=== PATIENT | female | born 1975 | race Caucasian/White ===

== ENCOUNTER → 2018-02-25 15:40 | Outpatient (CLI) | payer SELFPAY ==
--- NOTE | 2018-02-25 16:20 | MRI_ITS ---
MR Spine Thoracic W/O Contrast INDICATION: MID BACK PAINlifting injury 2 months ago , mid back pain and bilat arm weakness COMPARISON: None TECHNIQUE: Multiplanar multisequence MRI examination of the thoracic spine without contrast FINDINGS: There is normal thoracic kyphosis and no evidence of scoliosis. Height of the vertebral bodies is preserved. Alignment at the facet joints is normal. There is no evidence of significant disc bulging, spinal canal or neuroforaminal stenosis. The thoracic cord is normal in course, caliber, and signal intensity. No abnormal epidural or paraspinal collection is identified. The bone marrow signal is normal. MRI/Spine Thoracic (Routine) IMPRESSION: MRI of the thoracic spine is within normal limits. at 0107 Reported and signed by: Michelle Medel MD Electronically Signed: Michelle Medel MD at 0:06 EDT Tel , Service support ,
== END ==
DX: M54.6 Pain in thoracic spine (principal); M62.830 Muscle spasm of back
CPT/HCPCS: 72146

== ENCOUNTER → 2018-03-21 13:24 | Outpatient (CLI) | payer SELFPAY ==
--- NOTE | 2018-03-21 13:29 | RAD_ITS ---
STUDY: X-RAY CHEST REASON FOR EXAM: Female, 42 years old. Back pain TECHNIQUE: 2 views COMPARISON: None. FINDINGS: The lungs are clear and expanded. There is no demonstrated pleural abnormality. Normal size heart. Normal mediastinum and david. Normal visualized pulmonary arteries. Normal visualized aortic arch and descending thoracic aorta. Normal visualized thoracic spine. Normal visualized ribs, clavicles, and shoulders. There is no demonstrated abnormality of the visualized soft tissue structures of the upper abdomen. RAD/Chest PA and Lateral IMPRESSION: Normal x-ray examination of the chest. Electronically Signed: Lulú Sears MD at 21:57 EDT , Service support ,
--- NOTE | 2018-03-21 13:30 | EKG12_ITS ---
Test Reason : CP Blood Pressure : / mmHG Vent. Rate : 077 BPM Atrial Rate : 077 BPM P-R Int : 130 ms QRS Dur : 082 ms QT Int : 374 ms P-R-T Axes : 020 055 040 degrees QTc Int : 423 ms Normal sinus rhythm Normal ECG Confirmed by CHASITY EDWARDS MD ([id number]), news videotape editor VANESA EVERETT ([id number]) on 03/22/2018 1:14:10 PM Referred By: JENNIFER PINEDA Confirmed By:CHASITY EDWARDS MD
== END ==
PROVIDERS: Visit Provider Nurse Practitioner Family
DX: R07.9 Chest pain, unspecified (principal); M54.9 Dorsalgia, unspecified; R61 Generalized hyperhidrosis
CPT/HCPCS: 71046; 93005

== ENCOUNTER → 2018-04-30 13:20 | Outpatient (CLI) | payer SELFPAY ==
--- NOTE | 2018-04-30 13:20 | DT_ITS ---
This patient was seen during an EMR downtime April 29, 2018 - May 06, 2018. This patient may have a combination of paper and electronic documentation or all paper documentation. All documentation is viewable within the e-chart portion of [employer] for each patient visit.
[2018-05-06 10:54] LABS: CPK Total, Creatine Kinase 38 U/L (26-192); CRP < 2.90 mg/L (0.0-3.0)
== END ==
PROVIDERS: Visit Provider Family Medicine
DX: R53.83 Other fatigue (principal); R53.1 Weakness
CPT/HCPCS: 36415; 82550; 86140; 86617; 86618

== ENCOUNTER → 2018-05-30 13:20 | Outpatient (CLI) | payer SELFPAY ==
--- NOTE | 2018-05-30 13:26 | CT_ITS ---
STUDY: CT ABDOMEN AND PELVIS WITHOUT CONTRAST REASON FOR EXAM: Female, 43 years old. Bilateral lower abdominal cramping, 2 years, worsening over the last month. Frequent yeast infections. RADIATION DOSAGE (If Supplied By Facility): CTDIvol = ( 7.41 ) mGy, DLP = ( 366.77 ) mGycm TECHNIQUE: Transaxial images were obtained from the dome of the diaphragm to the symphysis pubis without oral contrast, and without intravenous contrast. Sagittal and coronal images were reconstructed. Individualized dose optimization techniques were used for this CT. COMPARISON: None. FINDINGS: Body wall soft tissues: No acute process. Osseous structures: Slight scoliosis. Inferior chest: No acute process. Hepatobiliary: Normal. Pancreas: No acute process. Spleen: Normal. Adrenal glands: Normal. Urogenital: Normal kidneys, collecting systems, ureters, urinary bladder. Anteverted uterus tilted toward the right, displaced toward the right due to a large left ovarian cyst. Left ovarian cyst is thin-walled, measures 9.8 cm anterior-posterior, 8.1 cm transverse, and 8.4 cm craniocaudal. Central density averaging 22 Hounsfield units, suspicious for a mucinous neoplasm. There is a right ovarian cyst, central density 7.7 Hounsfield units, measuring 3.1 cm. There is no cul-de-sac free fluid. Pelvic floor and sidewalls and retroperitoneum: No mass or adenopathy. Vasculature: No acute process. Stomach: No acute process. Small bowel and mesentery: No acute process. Large bowel: Normal small appendix or appendiceal stump. Unremarkable large bowel and rectum. Free fluid or free air: None. CT/Abdomen/Pelvis without Cont IMPRESSION: 1. Bilateral ovarian cysts. That on the right is probably a dominant follicle but measures greater than 3 cm and should be further characterized. That on the left is large, greatest dimension approximately 9.8 cm, with more complex internal features, potentially representing a mucinous neoplasm or other complex cyst. Further characterization with ultrasound is required. 2. No other acute intra-abdominal process is evident. Electronically Signed: Al Ghada, at 14:24 EDT Tel , Service support ,
--- NOTE | 2018-05-30 13:41 | US_ITS ---
STUDY: ULTRASOUND OF THE FEMALE PELVIS - COMPLETE REASON FOR EXAM: Female, 43 years old. Bilateral pelvic cramping. LMP: 05/18/2018 TECHNIQUE: Transabdominal real-time exam with a scale image documentation. Patient declined transvaginal imaging. TECHNICAL QUALITY: Adequate. COMPARISON: Abdomen and pelvic CT exam of May 30, 2028 FINDINGS: The uterus is anteverted and is tilted to the right side of the pelvis. The uterus measures 8.8 x 4.7 x 3.6 cm. Normal uterine cervix. The endometrium measures 13 mm in thickness, and is hyperechoic. There is no demonstrated endometrial mass. There is a 5 cm pedunculated fibroid of the uterine fundus. There is also a 1 cm hypoechoic density that is in or near the endometrial space. I.U.D. - The patient does not have an I.U.D. The right ovary is visualized. The right ovary measures 4.4 x 3.7 x 3.0 cm. There is a 3.1 x 2.7 x 2.6 cm simple cyst of the right ovary. There is no visualized right adnexal mass or complex lesion. There is normal arterial and normal venous vascularity. The left ovary is visualized. The left ovary measures 10.2 x 9.1 x 6.5 cm. There is a 9.3 x 6.7 x 5.6 cm complex cyst of the left ovary with homogeneous internal echo. There is no visualized left adnexal mass or complex lesion. There is normal arterial and normal venous vascularity. There is no fluid in the cul-de-sac. The pre void volume of the bladder was 395 ml. Polycystic ovary disease: No. US/Pelvic (Non ) IMPRESSION: 5 cm pedunculated fibroid of the uterine fundus. 1 cm hypoechoic density within or near the endometrium. Endometrial polyp versus submucosal fibroid. The addition of a transvaginal study would aid in evaluation of this finding. The patient declined transvaginal exam. 3.1 x 2.7 x 2.6 cm simple cyst of the right ovary. 9.3 x 6.7 x 5.6 cm complex cyst of the left ovary with homogeneous internal echoes which may be hemorrhagic or other substance such as mucinous. Normal Doppler exam of the ovarian tissue bilaterally. Negative for other adnexal masses or free fluid. Electronically Signed: Lulú Sears MD at 17:54 EDT , Service support ,
== END ==
PROVIDERS: Family Provider Family Medicine; PCP Family Medicine; Visit Provider Nurse Practitioner Family
DX: R10.31 Right lower quadrant pain (principal)
CPT/HCPCS: 74176; 76856

== ENCOUNTER → 2018-06-03 11:49 | Outpatient (CLI) | payer SELFPAY ==
[2018-06-05 10:05] LABS: Cancer Antigen 125 141.9 U/mL (0.0-38.1)
== END ==
PROVIDERS: Family Provider Family Medicine; PCP Family Medicine; Visit Provider Family Medicine
DX: N83.292 Other ovarian cyst, left side (principal)
CPT/HCPCS: 36415; 86304

== ENCOUNTER → 2018-08-12 08:47 | Outpatient (CLI) | payer OTHER, SELFPAY ==
[2018-08-12 12:05] LABS: Absolute Lymphocyte Count 1.63 X10^3/ul (0.83-4.51); Absolute Neutrophil Count 3.9 X10^3/uL (2.0-7.7); Basophil# 0.03 X10^3/uL; Basophil% 0.5 % (0-1); Eosinophil# 0.19 X10^3/uL; Eosinophils% 3.1 % (0-5); Hematocrit 38.8 % (37-47); Hemoglobin 12.8 g/dl (12.0-15.0); Lymphocyte # 1.63 X10^3/ul (4.0); Lymphocyte % 26.6 % (19-41); Mean Corpuscular Hgb 28.6 pg (27.0-32.0); Mean Corpuscular Volume 86.8 fL (81-99); Mean Platelet Vol. 11.2 fl (6.2-12.0); Monocyte# 0.38 X10^3/uL; Monocyte% 6.2 % (0-10); Neutrophil # 3.89 X10^3/uL (2.7-7.7); Neutrophil % 63.4 % (47-70); Platelet Count 123 K/mm3 (150-450); RBC Distribution Width CV 12.8 % (11.6-14.6); RBC Distribution Width SD 41.1 fl (35.1-43.9); Red Blood Count 4.47 M/mm3 (4.2-5.4); White Blood Count 6.1 K/mm3 (4.4-11.0)
[2018-08-12 12:07] LABS: POSITIVE COUNT NO; POSITIVE DIFFERENTIAL NO; POSITIVE MORPHOLOGY NO
[2018-08-12 12:29] LABS: AST(SGOT) 18 U/L (15-37); Alanine Aminotransfer ALT/SGPT 24 U/L (13-56); Albumin, Serum 3.7 g/dL (3.2-5.0); Alkaline Phosphatase 69 U/L (45-117); Anion Gap 11 (5-15); BUN 8 mg/dL (7-18); BUN/Creat Ratio 11.6 RATIO (10-20); Calcium,Total 8.6 mg/dL (8.5-10.1); Chloride 105 mmol/L (98-107); Creatinine, Serum 0.69 mg/dL (0.55-1.02); EST Glomerular Filtration Rate 98 mL/min (>60); Est Glom Filt Rate - Afr Amer 119 mL/min (>60); Globulin 3.8 g/dL (2.2-4.2); Glucose 89 mg/dL (74-106); Potassium 3.9 mmol/L (3.5-5.1); Protein, Total 7.5 g/dL (6.4-8.2); Sodium Level 141 mmol/L (136-145)
[2018-08-13 09:49] LABS: Cancer Antigen 125 58.9 U/mL (0.0-38.1)
== END ==
PROVIDERS: Family Provider Family Medicine; PCP Family Medicine; Visit Provider Family Medicine
DX: R97.0 Elevated carcinoembryonic antigen [CEA] (principal); R10.9 Unspecified abdominal pain
CPT/HCPCS: 36415; 80053; 85025; 86304

== ENCOUNTER → 2018-08-16 11:24 | Outpatient (CLI) | payer OTHER, SELFPAY ==
--- NOTE | 2018-08-16 11:31 | US_ITS ---
STUDY: ULTRASOUND OF THE FEMALE PELVIS - COMPLETE REASON FOR EXAM: Female, 43 years old. Pelvic pain. LMP: May 30, 2018. TECHNIQUE: Transabdominal. Patient was unable to tolerate vaginal probe insertion. TECHNICAL QUALITY: Adequate. COMPARISON: Comparison is made with prior study dated May 30, 2018. FINDINGS: The uterus is anteverted and is in a midline position. The uterus measures 8.7 cm x 6.1 cm x 4.3 cm. Normal uterine cervix. The endometrium measures 10.6 mm in thickness, and is hyperechoic. There is no demonstrated endometrial mass. There is no demonstrated myometrial mass. The previously seen uterine fibroid is not seen at this time most likely secondary to prior resection. I.U.D. - The patient does not have an I.U.D. The right ovary is visualized. The right ovary measures 3.1 cm x 3.1 cm x 2.0 cm. There is no right ovarian cyst or ovarian mass. There is no visualized right adnexal mass or complex lesion. There is normal arterial and normal venous vascularity. The left ovary is visualized. The left ovary measures 5.5 cm x 5.7 cm x 5.0 cm. There is a 5.5 cm x 5.7 cm primarily cystic mass in the ovary with low-level echoes. This may represent a child with cyst if the patient has a history of endometriosis. There is no visualized left adnexal mass or complex lesion. There is normal arterial and normal venous vascularity. There is no fluid in the cul-de-sac. The pre void volume of the bladder was 221 ml. Polycystic ovary disease: No. US/Pelvic (Non ) IMPRESSION: No uterine fibroid is seen at this time most likely secondary to prior surgery. 5.5 cm x 5.7 cm complex cystic mass in the left ovary. Clinical correlation is recommended. Electronically Signed: Ashish He MD at 8:56 EDT Tel [phone], Service support ,
--- NOTE | 2018-08-16 11:33 | BI_ITS ---
MAMMOGRAPHY - BILATERAL DIAGNOSTIC REASON FOR EXAM: Female, 43 years old. Right axillary swelling. PERTINENT HISTORY: Non-contributory. TECHNIQUE: Digital bilateral breast amos (3D mammographic acquisition) in the CC and MLO projections. 2-D mediolateral oblique (MLO) and craniocaudad (CC) views of both breasts were obtained. CAD: Full Field Digital Mammography with Computer Added Detection was performed. COMPARISON: None. Baseline examination. FINDINGS: Breast Composition: The breasts are heterogeneously dense, which may obscure small masses. There are no dominant masses or suspicious calcifications. No other significant abnormalities are identified. BI/DIAG MAMM W/CAD, BILAT IMPRESSION: Negative diagnostic mammogram. With the patient's history of left axillary swelling, correlation with ultrasound is recommended. ASSESSMENT CATEGORY: BIRADS Category 0: Incomplete. Need additional imaging evaluation. A letter regarding these results will be sent to the patient by the facility within 30 days. Approximately 10% of breast cancers are not detected by mammography. A normal mammogram should not delay biopsy of a clinically suspicious abnormality. Electronically Signed: Ashish He MD at 13:17 EDT Tel [phone], Service support ,
--- NOTE | 2018-08-16 11:34 | US_ITS ---
STUDY: ULTRASOUND BREAST - right breast. REASON FOR EXAM: Female, 43 years old. Right axillary fullness. TECHNIQUE: Axial and longitudinal images of the breast were performed with a high resolution ultrasound transducer. COMPARISON: Comparison is made with prior mammogram done earlier today. FINDINGS: Right Breast: No sonographic abnormality is seen. US/Breast Limited Unilateral IMPRESSION: No sonographic abnormality is seen. ASSESSMENT CATEGORY: BIRADS Category 1: Negative. A letter regarding these results will be sent to the patient by the facility within 30 days. Electronically Signed: Ashish He MD at 14:57 EDT Tel [phone], Service support ,
== END ==
PROVIDERS: Family Provider Family Medicine; PCP Family Medicine; Visit Provider Family Medicine
DX: N83.201 Unspecified ovarian cyst, right side (principal); M79.621 Pain in right upper arm; M79.89 Other specified soft tissue disorders; R92.2 Inconclusive mammogram; D25.9 Leiomyoma of uterus, unspecified; R10.9 Unspecified abdominal pain; R97.0 Elevated carcinoembryonic antigen [CEA]
CPT/HCPCS: 76642; 76856; 77062; 77063; 77066; G0279

== ENCOUNTER → 2018-11-04 10:51 | Outpatient (CLI) | payer MEDICAID, SELFPAY ==
[2018-11-04 12:55] LABS: T4 Free Direct 0.97 ng/dL (0.76-1.46); Thyroid Stim Hormone (TSH) 2.87 uIU/mL (0.358-3.74)
[2018-11-05 16:16] LABS: Thyroid Peroxidase AB 402 IU/mL (0-34)
[2018-11-06 09:18] LABS: Carcinoembryonic Antigen 0.6 ng/mL (0.0-4.7); Thyroglobulin Antibody 3.6 IU/mL (0.0-0.9)
== END ==
PROVIDERS: PCP Family Medicine; Visit Provider Family Medicine
DX: N83.9 Noninflammatory disorder of ovary, fallopian tube and broad ligament, unspecified (principal); R97.0 Elevated carcinoembryonic antigen [CEA]; R79.89 Other specified abnormal findings of blood chemistry
CPT/HCPCS: 36415; 82378; 84439; 84443; 86376; 86800

== ENCOUNTER → 2018-12-19 12:34 | Outpatient (CLI) | payer MEDICAID, SELFPAY ==
--- NOTE | 2018-12-19 12:37 | CT_ITS ---
STUDY: CT ABDOMEN AND PELVIS WITH CONTRAST REASON FOR EXAM: Female, 43 years old. Right ovarian mass. Left ovary removed. RADIATION DOSAGE (If Supplied By Facility): CTDIvol = ( 9.78 ) mGy, DLP = ( 419.77 ) mGycm TECHNIQUE: Transaxial images were obtained from the dome of the diaphragm to the symphysis pubis without oral contrast. 100CC ml of Isovue 300 contrast was administered. Sagittal and coronal images were reconstructed. Individualized dose optimization techniques were used for this CT. COMPARISON: None. FINDINGS: The lung bases are clear. A small 4 mm area of low attenuation in the medial segment of the left lobe peripherally. May be a cyst. No dilated intrahepatic biliary radicles. The gallbladder is normal with no calcifications within it. There is no pericholecystic fluid collection or streakiness The spleen is normal. The pancreas is normal. Both adrenals are normal. The kidneys are normal with no masses, calculi or hydronephrosis The stomach is normal. There is no bowel distention, acute appendicitis or diverticulitis. No constricting lesions are seen in large bowel. The abdominal wall is intact with no hernias. There is no ascites or any free intraperitoneal air. No indication of epiploic appendagitis The vascular structures in the retroperitoneum are normal. There is no retrocrural, retroperitoneal or mesenteric adenopathy. The bones and joints are normal. The urinary bladder is normal.--The uterus is normal. There is a 5.8 cm solid left adnexal mass is attached to the uterus. May represent a subserosal fibroid There is no inguinal or pelvic adenopathy. There is no inguinal hernia. CT/Abdomen/Pelvis W IV Cont ONLY IMPRESSION: A solid 5.8 cm left adnexal mass. A subserosal fibroid is suspected. No acute appendicitis or diverticulitis. Electronically Signed: Devon Lewis MD at 7:35 EST Tel , Service support ,
== END ==
PROVIDERS: Family Provider Family Medicine; PCP Family Medicine; Referring Provider Family Medicine; Visit Provider Family Medicine
DX: N83.9 Noninflammatory disorder of ovary, fallopian tube and broad ligament, unspecified (principal); R10.2 Pelvic and perineal pain
CPT/HCPCS: 74177; Q9967

== ENCOUNTER → 2019-10-14 13:26 | Outpatient (CLI) | payer MEDICAID, SELFPAY ==
[2019-10-14 15:14] LABS: Absolute Neutrophil Count 3.5 X10^3/uL (2.0-7.7); Basophil# 0.02 X10^3/uL; Basophil% 0.3 % (0-1); Eosinophil# 0.12 X10^3/uL; Eosinophils% 2.1 % (0-5); Hematocrit 41.2 % (37-47); Hemoglobin 13.7 g/dL (12.0-15.0); Lymphocyte % 27.9 % (19-41); Mean Corp Hgb Conc 33.3 g/dL (32-36); Mean Corpuscular Hgb 29.3 pg (27.0-32.0); Mean Corpuscular Volume 88.2 fL (81-99); Mean Platelet Vol. 12.9 fl (6.2-12.0); Monocyte# 0.45 X10^3/uL; Monocyte% 7.8 % (0-10); NRBC Flagged by Analyzer 0 % (0-5); Neutrophil # 3.54 X10^3/uL (2.7-7.7); Neutrophil % 61.7 % (47-70); Platelet Count 120 K/mm3 (150-450); RBC Distribution Width CV 12.7 % (11.6-14.6); RBC Distribution Width SD 40.9 fl (35.1-43.9); Red Blood Count 4.67 M/mm3 (4.2-5.4); White Blood Count 5.7 K/mm3 (4.4-11.0)
[2019-10-14 15:26] LABS: ALB/GLOB Ratio 1.2 RATIO (0.9-2.4); AST(SGOT) 13 U/L (15-37); Alanine Aminotransfer ALT/SGPT 20 U/L (13-56); Albumin, Serum 4.2 g/dL (3.2-5.0); Alkaline Phosphatase 51 U/L (45-117); Anion Gap 10 (5-15); BUN 8 mg/dL (7-18); CRP < 2.90 mg/L (0.0-3.0); Calcium,Total 8.8 mg/dL (8.5-10.1); Chloride 106 mmol/L (98-107); Creatinine, Serum 0.66 mg/dL (0.55-1.02); EST Glomerular Filtration Rate 102 mL/min (>60); Est Glom Filt Rate - Afr Amer 123 mL/min (>60); Globulin 3.5 g/dL (2.2-4.2); Glucose 78 mg/dL (74-106); Lipase 109 U/L (73-393); Potassium 3.6 mmol/L (3.5-5.1); Protein, Total 7.7 g/dL (6.4-8.2); Sodium Level 139 mmol/L (136-145)
[2019-10-14 15:42] LABS: Erythrocyte Sedimentation Rate 5 mm/hr (0-20)
[2019-10-16 13:38] LABS: Carbohydrate Ag 19-9 2261 9 U/mL (0-35); Carcinoembryonic Antigen 0.6 ng/mL (0.0-4.7)
== END ==
PROVIDERS: Family Provider Family Medicine; PCP Family Medicine; Visit Provider Family Medicine
DX: R10.9 Unspecified abdominal pain (principal); N83.9 Noninflammatory disorder of ovary, fallopian tube and broad ligament, unspecified; R97.0 Elevated carcinoembryonic antigen [CEA]
CPT/HCPCS: 36415; 80053; 82378; 83690; 85025; 85652; 86140; 86301

== ENCOUNTER 2019-10-24 11:13 | Emergency (ER) | payer MEDICAID, SELFPAY ==
[2019-10-24 11:14] VITALS: BP 124/68; PULSE 89; RESP 16; TEMP 36.9; O2SAT 97; BMI 21.6
--- NOTE | 2019-10-24 11:50 | ED.DCSUM_ITS ---
- ER Visit Summary Date of Service: 10/24/19 Chief Complaint: Left lower quadrant flank and abdominal pain. History of Present Illness: The patient is a 44 F no significant past medical history. She did have surgery in her left ovary removed secondary to ovarian cyst. That was done at [facility]. She states she had a Pelvic MRI several weeks ago at the [facility] and they saw endometriosis. Patient states the last month or so she has been having intermittent left lower quadrant and left flank and back abdominal pain. No nausea or vomiting but says the pain is worse with eating so she has not been eating as much and has lost as much as 20 pounds. She denies any hematuria. Currently no dysuria. Normal bowel movements. Physical Examination: Well-appearing middle-aged female. No acute distress. Vital signs are stable and afebrile. H EENT exam unremarkable. Moist with membranes. Neck nontender. No lymphadenopathy. Lungs clear to auscultation bilaterally. Heart regular rhythm no murmur. Abdomen is soft. Mild left lower quadrant tenderness. No rebound guarding rigidity. Normal bowel sounds. Nondistended. No signs of obstruction. Patient moving all 4 extremities. Back is nontender. Neurologically she is awake and alert with no focal motor deficits. Test Results: BC shows a white count 6. Hemoglobin 13. Chemistries unremarkable normal creatinine gap. Liver enzymes normal. Lipase normal. UA normal. Serum test negative. CT abdomen pelvis shows a large left adnexal mass which is suspected to be a pedunculated fibroid. This was also previously seen on an MRI from another facility. Emergency Department Course and Treatment: Left lower quadrant and flank abdominal pain. Has been a benign appearing exam. Had a recent MRI at the [facility]. Repeat exam at 1450 lipase of abdomen is benign. She and her brother are concerned or something else going on. They requested imaging to be done. I did go over there MRI of her pelvis from the [facility] which we were sent to results which showed a uterine fibroid but otherwise is unremarkable. C. Treatment Plan: Discharged home. Follow-up with her outpatient evaluation at the [facility]. Disposition: Discharge Impression: Left lower quadrant abdominal and flank pain Canary to a left lower quadrant mass thought to be a pedunculated fibroid This note was generated with Specpageation software. It may contain incorrect words, spelling, and punctuation that were not noted in review of the chart prior to signing ED Disposition - Plan for ED Patient: Referrals: Chris Aponte DO [Primary Care Provider] -
[2019-10-24] MEDS: 0.9% Normal Saline 1,000 ML 1000 ML IV (12:21)
[2019-10-24 12:30] LABS: Red Blood Cells-Urine 0 SEEN /hpf (0-5); Squamous Epithelial Cells - UA 0 SEEN /hpf (5-10); White Blood Cells 0 SEEN /hpf (0-5)
[2019-10-24 12:33] LABS: Bacteria 0 SEEN /hpf (None Seen); Mucous, Urine 0 SEEN /hpf (<or=2+)
[2019-10-24 12:40] LABS: Absolute Lymphocyte Count 1.76 X10^3/uL (0.83-4.51); Absolute Neutrophil Count 4.2 X10^3/uL (2.0-7.7); Basophil# 0.02 X10^3/uL; Basophil% 0.3 % (0-1); Eosinophil# 0.18 X10^3/uL; Eosinophils% 2.7 % (0-5); Hematocrit 40.6 % (37-47); Hemoglobin 13.9 g/dL (12.0-15.0); Lymphocyte # 1.76 X10^3/ul (4.0); Lymphocyte % 26.5 % (19-41); Mean Corp Hgb Conc 34.2 g/dL (32-36); Mean Corpuscular Hgb 30.4 pg (27.0-32.0); Mean Corpuscular Volume 88.8 fL (81-99); Mean Platelet Vol. 12.2 fl (6.2-12.0); Monocyte# 0.48 X10^3/uL; Monocyte% 7.2 % (0-10); NRBC Flagged by Analyzer 0 % (0-5); Neutrophil # 4.18 X10^3/uL (2.7-7.7); Neutrophil % 62.8 % (47-70); Platelet Count 156 K/mm3 (150-450); RBC Distribution Width CV 12.4 % (11.6-14.6); RBC Distribution Width SD 39.8 fl (35.1-43.9); Red Blood Count 4.57 M/mm3 (4.2-5.4); White Blood Count 6.7 K/mm3 (4.4-11.0)
[2019-10-24 12:46] LABS: Internal QC Validated? YES +Cl - CLEAR BKGD; Pregnancy, Serum, hCG Quali. NEGATIVE Negative
[2019-10-24 12:50] LABS: AST(SGOT) 15 U/L (15-37); Alanine Aminotransfer ALT/SGPT 19 U/L (13-56); Alkaline Phosphatase 53 U/L (45-117); Anion Gap 9 (5-15); BUN 6 mg/dL (7-18); BUN/Creat Ratio 8.4 RATIO (10-20); Bilirubin, Direct 0.18 mg/dL (0.00-0.30); Calcium,Total 8.7 mg/dL (8.5-10.1); Chloride 107 mmol/L (98-107); Creatinine, Serum 0.71 mg/dL (0.55-1.02); EST Glomerular Filtration Rate 94 mL/min (>60); Est Glom Filt Rate - Afr Amer 114 mL/min (>60); Estimated Creatinine Clearance 90.04 ml/min; Globulin 3.3 g/dL (2.2-4.2); Glucose 91 mg/dL (74-106); Lipase 117 U/L (73-393); Potassium 3.4 mmol/L (3.5-5.1); Protein, Total 7.3 g/dL (6.4-8.2); Sodium Level 142 mmol/L (136-145)
[2019-10-24 12:57] LABS: Color, Urine Yellow (Yellow); Glucose, Dipstick Normal (Normal); Ketone-Dipstick Negative (Negative); Leukocyte Esterase-Dipstick Negative /ul (Negative); Nitrite-Dipstick Negative (Negative); Occult Blood-Urine Negative /ul (Negative); Protein-Dipstick Negative (Negative); Urine Bilirubin Dipstick Negative (Negative); Urine Clarity Clear (Clear); Urine Urobilinogen Normal (Normal); Urine pH 6.5 (5.0 - 8.0)
--- NOTE | 2019-10-24 14:57 | CT_ITS ---
STUDY: CT ABDOMEN AND PELVIS WITHOUT CONTRAST REASON FOR EXAM: Female, 44 years old. Left-sided abdominal pain for 2 weeks, history of uterine mass RADIATION DOSAGE (If Supplied By Facility): CTDIvol = ( 10.82 ) mGy, DLP = ( 436.78 ) mGycm TECHNIQUE: Transaxial images were obtained from the dome of the diaphragm to the symphysis pubis without oral contrast, and without intravenous contrast. Sagittal and coronal images were reconstructed. Individualized dose optimization techniques were used for this CT. COMPARISON: December 19, 2018 FINDINGS: There is minor atelectasis within the dependent portion of the lungs.. The visualized portions of the heart are within normal limits. Mild nonspecific fatty infiltration of the liver without mass or bile duct dilatation. Contracted thick-walled gallbladder without calcified stones likely physiologic.. Normal spleen. Pancreas is normal size and homogeneous attenuation however there is effacement of the gastric pancreatic fat plane and possibility of mild pancreatitis not entirely excluded. Normal bilateral adrenal glands. Normal right kidney. Normal left kidney. Normal visualized stomach. Normal small intestine. There is an a haustral appearance to a segment of the descending colon with mild thickening of the guillory possibly representing inflammatory bowel disease although there is no appreciable stranding in the fat at this time. No evidence for acute appendicitis Normal abdominal aorta. Normal inferior vena cava. Normal retroperitoneum. There is mild prominence of the uterus which is deviated towards the right impinging upon the dome of the bladder. There is a large left adnexal mass demonstrating heterogeneous attenuation and multiple foci of calcification measuring approximately 5.5 x 4.8 x 5.7 cm likely representing a pedunculated fibroid. There is a cystic adnexal lesion on the right most likely ovarian. This may be further evaluated with pelvic sonogram if indicated Normal abdominal wall. Normal osseous structures. CT/Abdomen/Pelvis W IV Cont ONLY IMPRESSION: Effacement of the gastric pancreatic fat plane of uncertain significance although could be due to early changes of acute pancreatitis and clinical correlation recommended Large left adnexal mass possibly representing pedunculated fibroid although solid ovarian mass not entirely excluded. Mild cystic changes within the right adnexa. Pelvic ultrasound would be helpful for further evaluation Findings which may be consistent with nonspecific inflammatory bowel disease of the descending colon without evidence for inflammatory stranding at this time. Other findings as above Electronically Signed: Ambrocio Lebron MD at 16:23 EST , Service support ,
[2019-10-24 15:18] VITALS: BP 119/80; PULSE 65; RESP 15
--- NOTE | 2019-10-24 16:53 | ED.DEP ---
ED Disposition - Plan for ED Patient: Disposition: Home or Assisted Living Instructions: ABDOMINAL PAIN, Unknown Cause, (Female) Prescriptions: Ondansetron [Zofran Odt] 4 mg PO Q8H PRN PRN #20 tab PRN Reason: Nausea Prescription Printed Additional Instructions: Tylenol and/or Motrin for pain. Follow-up with your evaluation at the [facility] that you already have scheduled for the evaluation of the mass in your left lower quadrant that the prior MRI and today's CAT scan thinks is a fibroid.
[2019-10-24 17:01] VITALS: PULSE 66; RESP 16
== END 2019-10-24 17:03 | disposition home or self-care (01) ==
PROVIDERS: Emergency Provider Emergency Medicine; Family Provider Family Medicine; PCP Family Medicine
DX: R19.04 Left lower quadrant abdominal swelling, mass and lump (principal); R10.32 Left lower quadrant pain
CPT/HCPCS: 74177; 80048; 80076; 81001; 83690; 84703; 85025; 96360; 96361; 99283; J7030; Q9967; A4216

== ENCOUNTER 2019-11-27 10:29 | Day surgery (SDC) | payer MEDICAID, SELFPAY ==
[2019-11-21 14:47] VITALS: BMI 24.0
--- NOTE | 2019-11-27 | GASB_PTH ---
PATIENT: JORGE GUADARRAMA LOC: EN U#:[id number] AGE/SX: 44/F ROOM: RE11/27/[address]: Dr. Mirtha Wilks MD : [id number] BED: DIS: 11/27/2019 SPEC #: [id number] RECD: 11/27/19 13:57 STATUS: ALLAN HAYLEY #: [id number] HEIDI: 11/27/19 00:[address]: Mirtha Wilks DEPT: SURGICAL PATHOLOGY RECD BY: Chico Lofton ENTERED: 11/27/19 13:58 SP TYPE: Gastric Bx OTHR DR: Dr. Chris Aponte DO Tissues: A - Gastric mucous membrane B - Gastric mucous membrane C - Gastric mucous membrane D - Rectum, NOS Procedures: Special Stain Group II Surgery Specimen Level IV Alcian Blue/PAS (control) HEADER OPERATION: Colonoscopy, EGD ([facility]) PRE-OP DIAGNOSIS: Bilateral lower abdomen pain, LUQ abdomen pain, endometriosis, elevated CEA level TISSUE SUBMITTED: A - Antrum biopsy for H. pylori and path, B - Biopsy of gastric polyp, C - Biopsy of GE junction, D - Biopsy of rectal polyps MICROSCOPIC DIAGNOSIS A. Antrum, biopsy: Mild gastritis. See microscopic description and comment. B. Gastric polyp, biopsy: Consistent with fundic gland polyp. C. GE junction, biopsy: Fragments of gastroesophageal mucosa with minimal chronic inflammation. Intestinal metaplasia (goblet cell metaplasia) is not identified. See comment. D. Rectal polyp, biopsy: Fragments of hyperplastic polyp. SJ:arabella 11/28/19 COMMENT A. The results of immunohistochemistry for Helicobacter pylori will be reported separately ([id number]). C. The specimen consists of a scant fragment of gastric epithelium. Alcian blue/PAS stain with matched control is used in the evaluation of the specimen. MICROSCOPIC DESCRIPTION Slides are reviewed. A. The specimen shows fragments of gastric mucosa with chronic inflammatory cell infiltrates in the lamina propria consisting of lymphocytes and plasma cells, consistent with mild chronic gastritis. GROSS DESCRIPTION A - Received in fixative is one container labeled with the patient's name and designated antrum biopsy. The specimen consists of one irregular fragment of light anthony soft tissue that measures 0.3 x 0.3 x 0.2 cm. The specimen is totally submitted in one cassette. B - Received in fixative is one container labeled with the patient's name and designated biopsy gastric polyp. The specimen consists of one irregular fragment of light anthony soft tissue that measures 0.3 x 0.2 x 0.1 cm. The specimen is totally submitted in one cassette. C - Received in fixative is one container labeled with the patient's name and designated biopsy of GE junction. The specimen consists of two irregular fragments of light anthony soft tissue that in aggregate measure 0.6 x 0.3 x 0.1 cm. The specimen is totally submitted in one cassette. D - Received in fixative is one container labeled with the patient's name and designated biopsy of rectal polyps. The specimen consists of multiple irregular fragments of light anthony soft tissue that in aggregate measure 1 x 0.3 x 0.1 cm. The specimen is totally submitted in one cassette. / SJ:rg 11/27/19 TC:3 CPT: 45795 x4, [id number]
--- NOTE | 2019-11-27 08:29 | PCM.HP.BLA ---
History and Physical Date of Admission: 11/27/19 Date of Service: 11/21/19 MR#: [id number] Acct: [id number] Name: JORGE GUADARRAMA Rep #: [id number] : 1975 Provider: Mirtha Wilks MD Age/Sex: 44/F Location: [facility] Status: Signed Intake Vital Signs 11/21/19 Height 5 ft 4 in 11/21/19 Weight: 140 lb 11/21/19 BMI 24.0 11/21/19 BP 137/83 H 11/21/19 Blood Pressure Location Rt brachial 11/21/19 Position Sitting 11/21/19 Respiration 18 11/21/19 Pulse 78 11/21/19 Pulse Source Monitor 11/21/19 Temp 98.5 F 11/21/19 Temp Source Oral 11/21/19 Pulse Oximetry (%) 97 11/21/19 Oxygen Delivery Method room air 11/21/19 BMI 21.6 Intake Visit Reasons: C-Scope Compliance Quality Performance Analyst Required: No Is patient in pain?: No Allergies bee sting Allergy (Uncoded 11/24/19 12:04) Itching Medications ibuprofen 200 mg tablet 200 mg PO Q6H PRN 11/21/19 [History Confirmed 11/24/19] omega-3 fatty acids 1,000 mg capsule 1,000 mg PO DAILY 11/21/19 [History Confirmed 11/24/19] PFSH Medical History (Updated 11/21/19 @ 14:44 by Zora Glass) Acid reflux (Acute) Constipation (Acute) Abdominal pain, lower (Acute) Fatigue (Acute) Back problem (Acute) Felix's disease (Acute) Uterine fibroid (Acute) Adenomyosis (Acute) Endometriosis (Acute) Surgical History (Updated 11/21/19 @ 14:44 by Zora Glass) History of left oophorectomy (Acute) Family History (Updated 11/21/19 @ 14:47 by Zora Glass) Brother Diabetes Father Hypertension Sister Lupus Thyroid disorder Social History (Updated 11/27/19 @ 08:26 by Mirtha Wilks MD) Smoking Status: Never smoker second hand exposure: No alcohol intake: never substance use type: does not use caffeine: Yes what type of physical activity do you participate in: none frequency: does not exercise HPI HPI HPI: JORGE MANZANO, is a 44 F who presents to the office today for HPI HPI HPI: JORGE MANZANO, is a 44 F who presents to the office today for colonoscopy due to abdominal pain and elevated CEA 17.53 (from lab in [place] when she was visiting her sister). Patient states that she has had an EGD in [place] when she was 17 otherwise never had a colonoscopy. Patient states that lifting can make her abdominal pain worse and also typically worse after her menses. Usually occurs in the right lower quadrant goes the left lower quadrant and then to the left upper quadrant. Patient states that typically it last about 5 days after her. She is being worked up for endometriosis. However last month they lasted about 2 weeks. Patient states that certain foods can have a sharp pain associated with them fruit, sweet, meat. Patient denies any reflux symptoms but does have the left upper quadrant pain. Patient has bowel movements daily and does take a laxative daily for this. Patient denies any blood. Patient's maternal grandfather had colon cancer diagnosed at age 73. Patient's last menses was 11/10/2019. Patient also had MRI of the pelvis which showed some endometriosis abutting the sigmoid colon, also other areas of endometriosis, a large exophytic pedunculated uterine leiomyoma, suspected focal adenomyoma. Exam Const General: cooperative, healthy appearing, comfortable, no acute distress Resp Effort & Inspection: normal respiratory effort Cardio Rate: regular rate GI Inspection: non-distended Palpation: soft, no guarding, no hernias, tender (Bilateral lower quadrants, left upper quadrant, no peritoneal signs) Assessment & Plan Problems 1. Bilateral lower abdominal pain R10.31; R10.32 2. LUQ abdominal pain R10.12 3. Elevated CEA R97.0 4. Endometriosis N80.9 Plan Discussed with patient due to the left upper quadrant pain would also suggest taking a look with an EGD. Patient was agreeable with plan. I have discussed the above with the patient. I have offered the patient EGD and colonoscopy for evaluation. I have explained the risks/benefits of the procedure and described the procedure. I have discussed the risks with the patient, including but not limited to: infection, bleeding, perforation of the GI tract requiring emergency surgery, inability to complete the procedure, injury to any internal organs, complications of anesthesia, etc. - the patient understands and agrees to proceed. I have answered all the patient's questions to the patient's satisfaction and the patient has no further questions. The patient has been given instructions for the colon cleansing preparation. One day of clears MiraLAX Dulcolax split prep. Mirtha Wilks M.D. Pager: [phone] [facility] [address] [place] [address], [facility], [address] [place] [address] Office: [phone] Plan Detail Follow Up will schedule colonoscopy Coding Level of Care Code Off vis,new,level 3 Diagnoses Bilateral lower abdominal pain R10.31; R10.32 LUQ abdominal pain R10.12 Elevated CEA R97.0 Endometriosis N80.9 11/27/19 0826 <Electronically signed by Mirtha Wilks MD> Date Mirtha Wilks MD
[2019-11-27 10:45] VITALS: BP 117/60; PULSE 78; RESP 15; TEMP 36.6; O2SAT 100; BMI 23.1
[2019-11-27 10:57] LABS: Internal QC Validated? YES +Cl - CLEAR BKGD; Pregnancy, Urine Negative Negative
[2019-11-27] MEDS: Lactated Ringers 1,000 ML 100 ML IV (11:05)
--- NOTE | 2019-11-27 11:45 | IMM_PTH ---
PATIENT: JORGE GUADARRAMA LOC: EN U#:[id number] AGE/SX: 44/F ROOM: RE11/27/[address]: Dr. Mirtha Wilks MD : 1975 BED: DIS: 11/27/2019 SPEC #: [id number] RECD: 11/27/19 14:44 STATUS: SOUJuanjose REQ #: [id number] HEIDI: 11/27/19 11:[address]: Mirtha Wilks DEPT: IMMUNOHISTOCHEMISTRY RECD BY: Jing Saenz ENTERED: 11/27/19 14:44 SP TYPE: IMMUNO OTHR DR: Dr. Chris Aponte, DO Tissues: A - Abdomen, NOS Procedures: H Pylori (initial) PHYSICIAN & INSTITUTION [place] [address] SPECIMEN INFORMATION: Tissue Source: A - Antrum biopsy Clinical Info: Bilateral lower abdomen pain, LUQ abdomen pain Specimen Number: [id number] CPT code: 74348 METHODOLOGY: Deparaffinized sections of prefer/formalin-fixed tissue or PAP/DQ stained slides are incubated with monoclonal/polyclonal antibodies/oligonucleotide probes. Localization is made via biotin free immunoperoxidase method. Appropriate controls are performed and reacted as expected. Results on target cell population are indicated in the following table: RESULTS: ANTIBODY / CLONE RESULT Block A H Pylori (polyclonal) negative These tests were developed and their performance characteristics determined by [facility]. They may not have been cleared or approved by the U.S. Food and Drug Administration. The FDA has determined that such clearance or approval is not necessary. INTERPRETATION: A. Antrum biopsy: Negative for Helicobacter pylori organisms. AM:arabella 12/01/19
[2019-11-27 12:15] VITALS: BP 117/60; BP 122/75; PULSE 64; RESP 16; TEMP 37.1; O2SAT 100
--- NOTE | 2019-11-27 12:16 | OP.EGD_ITS ---
Patient Name: Tequila Vinson Procedure Date: 11/27/2019 11:26 AM Date of : 1975 Age: 44 Procedure: Upper GI endoscopy Indications: Abdominal pain in the left upper quadrant Providers: Mirtha Wilks MD Referring MD: Chris Aponte Medicines: Monitored Anesthesia Care Patient Profile: This is a 44 year old female. Complications: No immediate complications. Procedure: Pre-Anesthesia Assessment: - Prior to the procedure, a History and Physical was performed, and patient medications and allergies were reviewed. The patient's tolerance of previous anesthesia was also reviewed. The risks and benefits of the procedure and the sedation options and risks were discussed with the patient. All questions were answered, and informed consent was obtained. Prior Anticoagulants: The patient has taken no previous anticoagulant or antiplatelet agents. ASA Grade Assessment: II - A patient with mild systemic disease. After reviewing the risks and benefits, the patient was deemed in satisfactory condition to undergo the procedure. After obtaining informed consent, the endoscope was passed under direct vision. Throughout the procedure, the patient's blood pressure, pulse, and oxygen saturations were monitored continuously. The gastroscope was introduced through the mouth, and advanced to the second part of duodenum. The upper GI endoscopy was accomplished without difficulty. The patient tolerated the procedure well. Scope In: 11:35:20 AM Scope Out: 11:41:06 AM Total Procedure Duration Time 0 hours 5 minutes 46 seconds Findings: The Z-line was variable and was found 40 cm from the incisors. Biopsies were taken with a cold forceps for histology. The examined duodenum was normal. Mildly erythematous mucosa without bleeding was found in the gastric antrum. Biopsies were taken with a cold forceps for histology. Biopsies were taken with a cold forceps for Helicobacter pylori cultures. A few less than 5 mm semi-sessile polyps with no bleeding and no stigmata of recent bleeding were found in the gastric fundus and in the gastric body. The polyp was removed with a cold biopsy forceps. Resection and retrieval were complete. Impression: - Z-line variable, 40 cm from the incisors. Biopsied. - Normal examined duodenum. - Erythematous mucosa in the antrum. Biopsied. - A few gastric polyps. Resected and retrieved. Recommendation: - Await pathology results. - Discharge patient to home. - Resume previous diet. - Continue present medications. - Recommend acid suppression medication. Procedure Code(s): --- Professional --- 59724, Esophagogastroduodenoscopy, flexible, transoral; with biopsy, single or multiple Diagnosis Code(s): --- Professional --- K22.8, Other specified diseases of esophagus K31.89, Other diseases of stomach and duodenum K31.7, Polyp of stomach and duodenum R10.12, Left upper quadrant pain CPT copyright 2017 [employer]. All rights reserved. The codes documented in this report are preliminary and upon membership solicitor review may be revised to meet current compliance requirements. MD Mirtha Mckenzie MD 11/27/2019 12:15:22 PM This report has been signed electronically. Number of Addenda: 0 Note Initiated On: 11/27/2019 11:26 AM
[2019-11-27 12:20] VITALS: BP 116/75; BP 117/60; PULSE 61; RESP 16; O2SAT 100
--- NOTE | 2019-11-27 12:20 | OP.COLON_ITS ---
Patient Name: Tequila Vinson Procedure Date: 11/27/2019 11:42 AM Date of : 1975 Age: 44 Procedure: Colonoscopy Indications: Abdominal pain in the left lower quadrant, Abdominal pain in the left upper quadrant, Abdominal pain in the right lower quadrant Providers: Mirtha Wilks MD Referring MD: Chris Aponte Medicines: Monitored Anesthesia Care Patient Profile: This is a 44 year old female. Last Colonoscopy: none. The patient's first colonoscopy is today. Complications: No immediate complications. Procedure: Pre-Anesthesia Assessment: - Prior to the procedure, a History and Physical was performed, and patient medications and allergies were reviewed. The patient's tolerance of previous anesthesia was also reviewed. The risks and benefits of the procedure and the sedation options and risks were discussed with the patient. All questions were answered, and informed consent was obtained. Prior Anticoagulants: The patient has taken no previous anticoagulant or antiplatelet agents. ASA Grade Assessment: II - A patient with mild systemic disease. After reviewing the risks and benefits, the patient was deemed in satisfactory condition to undergo the procedure. After I obtained informed consent, the scope was passed under direct vision. Throughout the procedure, the patient's blood pressure, pulse, and oxygen saturations were monitored continuously. The Colonoscope was introduced through the anus and advanced to the cecum, identified by the appendiceal orifice, ileocecal valve and palpation. The colonoscopy was performed without difficulty. The patient tolerated the procedure well. The quality of the bowel preparation was good. Scope In: 11:44:32 AM Scope Withdrawal Time 0 hours 10 minutes 53 seconds Scope Out: 12:07:47 PM Total Procedure Duration Time 0 hours 23 minutes 15 seconds Findings: The perianal and digital rectal examinations were normal. Two sessile polyps were found in the rectum. The polyps were less than 5 mm in size. These polyps were removed with a cold biopsy forceps. Resection and retrieval were complete. The exam was otherwise without abnormality on direct and retroflexion views. A diffuse area of melanosis was found in the transverse colon, in the ascending colon and in the cecum. Impression: - Two less than 5 mm polyps in the rectum, removed with a cold biopsy forceps. Resected and retrieved. - The examination was otherwise normal on direct and retroflexion views. - Melanosis in the colon. Recommendation: - Discharge patient to home. - Resume previous diet. - Continue present medications. - Await pathology results. - Repeat colonoscopy in 5-10 years for surveillance based on pathology results. Procedure Code(s): --- Professional --- 97413, Colonoscopy, flexible; with biopsy, single or multiple Diagnosis Code(s): --- Professional --- K62.1, Rectal polyp K63.89, Other specified diseases of intestine R10.32, Left lower quadrant pain R10.12, Left upper quadrant pain R10.31, Right lower quadrant pain CPT copyright 2017 [employer]. All rights reserved. The codes documented in this report are preliminary and upon clinical coder review may be revised to meet current compliance requirements. MD Mirtha Mckenzie MD 11/27/2019 12:20:07 PM This report has been signed electronically. Number of Addenda: 0 Note Initiated On: 11/27/2019 11:42 AM
[2019-11-27 12:25] VITALS: BP 116/80; BP 117/60; PULSE 62; RESP 16; O2SAT 100
[2019-11-27 12:30] VITALS: BP 111/72; BP 117/60; PULSE 65; RESP 16; TEMP 36.2; O2SAT 100
== END 2019-11-27 13:07 | disposition home or self-care (01) ==
LOC: EN 10:30 → AC 10:32
PROVIDERS: Anesthesiology; Family Provider Family Medicine; PCP Family Medicine; Referring Provider Surgery; Visit Provider Surgery
PROC: 0DJD8ZZ Inspection of Lower Intestinal Tract, Via Natural or Artificial Opening Endoscopic (ICD-10-PCS; CPT 45378; principal; 2019-11-27 11:40)
DX: K31.7 Polyp of stomach and duodenum (principal); K22.8 Other specified diseases of esophagus; K31.89 Other diseases of stomach and duodenum; R97.0 Elevated carcinoembryonic antigen [CEA]; K21.9 Gastro-esophageal reflux disease without esophagitis; R10.12 Left upper quadrant pain; R10.31 Right lower quadrant pain; R10.32 Left lower quadrant pain; E06.3 Autoimmune thyroiditis; Z80.0 Family history of malignant neoplasm of digestive organs
CPT/HCPCS: 43239; 45380; 81025; 88305; 88313; 88342; J7120; J2405

== ENCOUNTER → 2020-07-15 12:25 | Outpatient (CLI) | payer MEDICAID, SELFPAY ==
[2020-07-15 15:38] LABS: Absolute Lymphocyte Count 1.39 X10^3/uL (0.83-4.51); Absolute Neutrophil Count 2.5 X10^3/uL (2.0-7.7); Basophil# 0.02 X10^3/uL; Basophil% 0.5 % (0-1); Eosinophil# 0.16 X10^3/uL; Eosinophils% 3.6 % (0-5); Hematocrit 41.2 % (37-47); Lymphocyte # 1.39 X10^3/ul (4.0); Lymphocyte % 31.3 % (19-41); Mean Corpuscular Hgb 30.6 pg (27.0-32.0); Mean Corpuscular Volume 90.2 fL (81-99); Mean Platelet Vol. 13.4 fl (6.2-12.0); Monocyte# 0.32 X10^3/uL; Monocyte% 7.2 % (0-10); NRBC Flagged by Analyzer 0 % (0-5); Neutrophil # 2.54 X10^3/uL (2.7-7.7); Neutrophil % 57.2 % (47-70); POSITIVE COUNT YES; Platelet Count 90 K/mm3 (150-450); RBC Distribution Width CV 12.2 % (11.6-14.6); RBC Distribution Width SD 40.2 fl (35.1-43.9); Red Blood Count 4.57 M/mm3 (4.2-5.4); White Blood Count 4.4 K/mm3 (4.4-11.0)
[2020-07-15 15:45] LABS: ALB/GLOB Ratio 1.2 RATIO (0.9-2.4); AST(SGOT) 9 U/L (15-37); Alanine Aminotransfer ALT/SGPT 16 U/L (13-56); Albumin, Serum 4.2 g/dL (3.2-5.0); Alkaline Phosphatase 47 U/L (45-117); Anion Gap 6 (5-15); BUN 10 mg/dL (7-18); BUN/Creat Ratio 14.6 RATIO (10-20); CRP < 2.90 mg/L (0.0-3.0); Calcium,Total 8.6 mg/dL (8.5-10.1); Chloride 107 mmol/L (98-107); Creatinine, Serum 0.69 mg/dL (0.55-1.02); EST Glomerular Filtration Rate 98 mL/min (>60); Est Glom Filt Rate - Afr Amer 118 mL/min (>60); Globulin 3.6 g/dL (2.2-4.2); Glucose 78 mg/dL (74-106); Lipase 115 U/L (73-393); Potassium 3.4 mmol/L (3.5-5.1); Protein, Total 7.8 g/dL (6.4-8.2); Sodium Level 140 mmol/L (136-145)
[2020-07-15 16:30] LABS: Differential Comment SCANNED; Differential Indicated SCAN CRITERIA MET; Platelet Estimate MOD DEC (ADEQ)
[2020-07-17 07:34] LABS: Carcinoembryonic Antigen 0.6 ng/mL (0.0-4.7)
== END ==
PROVIDERS: PCP Family Medicine; Referring Provider Family Medicine; Visit Provider Family Medicine
DX: R10.12 Left upper quadrant pain (principal); N85.8 Other specified noninflammatory disorders of uterus
CPT/HCPCS: 36415; 80053; 82378; 83690; 85025; 86140

== ENCOUNTER → 2021-09-14 10:11 | Outpatient (CLI) | payer MEDICAID, SELFPAY ==
--- NOTE | 2021-09-14 10:17 | US_ITS ---
STUDY: ABDOMINAL ULTRASOUND REASON FOR EXAM: Female, 46 years old. LUQ/RUQ AD PAIN/HX PARTIAL COLECTOMY TECHNIQUE: Transabdominal ultrasound was performed with real-time and static schwartz scale imaging. TECHNICAL QUALITY: Adequate. COMPARISON: None. FINDINGS: Liver: The liver measures 13.5 cm. There is normal echogenicity of the liver. The bile ducts are within normal limits. There is hepatic color flow. The direction of portal flow is hepatopetal. There is no demonstrated mass lesion. Gallbladder: Normal distended gallbladder. The gallbladder wall measures 2 mm. There is a negative sonographic Esquivel''s sign. There is no pericholecystic fluid. There are no gallstones. Common Bile Duct (C.B.D.): The common bile duct measures 5 mm. Pancreas: Normal size of the head, body and tail of the pancreas. There is normal echogenicity of the pancreas. There is no demonstrated pancreatic mass or cyst. No pancreatic ductal dilation. Spleen: Normal size of the spleen. The spleen measures 11.2 x 7.8 x 5.6 cm. Right Kidney: Normal size of the right kidney. The right kidney measures 10.5 x 5 x 4.1 cm. Normal renal cortex. The right cortex measures 1.2 cm. There is no demonstrated renal mass or cyst. There is no right hydronephrosis. Left Kidney: Normal size of the left kidney. The left kidney measures 10.5 x 4.7 x 4.6 cm. Normal renal cortex. The left cortex measures 1 cm. There is no demonstrated renal mass or cyst. There is no left hydronephrosis. Aorta: Normal size and DOPPLER flow without aneurysm. Minimal aortic plaque. I.V.C.: The IVC is patent. There is no ascites. US/Abdomen Complete IMPRESSION: Normal abdominal ultrasound examination. Electronically Signed: Hayden Beverly MD at 5:55 EDT Tel , Service support ,
== END ==
PROVIDERS: PCP Family Medicine; Referring Provider Family Medicine; Visit Provider Family Medicine
DX: R10.9 Unspecified abdominal pain (principal)
CPT/HCPCS: 76700

== ENCOUNTER → 2021-10-13 09:26 | Outpatient (CLI) | payer MEDICAID, SELFPAY ==
--- NOTE | 2021-10-13 09:29 | NM_ITS ---
CLINICAL: 46-year-old female with history of abdominal pain. RADIONUCLIDE HEPATOBILIARY SCINTIGRAPHY COMPARISON: Abdominal ultrasound report 09/14/2021 FINDINGS: Following the intravenous administration of 5.6 mCi of 99m Tc Mebrofenin, hepatobiliary images reveal: 1. Relatively prompt and homogeneous radiopharmaceutical concentration is noted by a normal sized liver. No parenchymal defects are identified. 2. Gallbladder activity is identified at 10 minutes post radiopharmaceutical administration. 3. Small intestinal tract is not visualized during 60 minutes of pre-CCK sequential imaging. Small bowel activity is identified following the administration of cholecystokinin. 4. Washout of the radiopharmaceutical by the hepatic parenchyma appears qualitatively normal. Cholecystokinin (0.02 ug/kg) was administered intravenously over a 3-minute period. The post CCK gallbladder ejection fraction calculated at 21 minutes following Cholecystokinin administration was noted to be 63.0 % (normal greater than 35%). During 30 minutes of post CCK imaging, there is no scintigraphic evidence of reflux of the radiotracer into the common hepatic duct or refilling of the gallbladder. NM/Hepatobilliary Img w/Pharm Int IMPRESSION: 1. NORMAL 99m Tc Mebrofenin hepatobiliary imaging examination with Cholecystokinin. A. A gallbladder ejection fraction calculated to be greater than 35% following the administration of Cholecystokinin makes the probability of functional hepatobiliary disease (gallbladder and/or sphincter of Oddi dyskinesia) and/or organic hepatobiliary disease (chronic acalculous cholecystitis and/or cystic duct syndrome) to be low. (Vince Vang et al, Journal of Nuclear Medicine 32:1695, 1991). Electronically Signed: Al Hopson DO at 22:30 EST Tel , Service support ,
== END ==
PROVIDERS: PCP Family Medicine; Referring Provider Family Medicine; Visit Provider Family Medicine
DX: R10.9 Unspecified abdominal pain (principal)
CPT/HCPCS: 78227; A9537; J2805

== ENCOUNTER → 2023-11-23 | Outpatient (CLI) | payer MEDICAID, SELFPAY ==
--- OUTSIDE RECORDS SUMMARY | 2023-11-23 15:04 | XMS RPT_ITS | CCD ---
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 Role Phone Zaira Aponte Primary Care Provider TIMOTHY PRICE Admitting Unavailable TIMOTHY PRICE Attending Unavailable NONE, NONE Primary Care Unavailable NONE, NONE Consulting Unavailable TIMOTHY PRICE Consulting Unavailable Zaira Aponte Primary Care Provider Zaira Aponte DO Primary Care Provider ZAIRA APONTE Attending Unavailable ZAIRA APONTE Primary Care Unavailable ZAIRA APONTE Admitting Unavailable Zaira Aponte DO Primary Care Provider DEMETRI XAVIER Attending Unavailable ZAIRA APONTE Primary Care Unavailable ZAIRA APONTE Primary Care Unavailable DEMETRI XAVIER Attending Unavailable Zaira Aponte DO Primary Care Provider SYSTEM, PROVIDER NOT IN Referring Unavaila ble SYSTEM, PROVIDER NOT IN Attending Unavaila ble ZAIRA APONTE Primary Care Unavailable DEMETRI XAVIER Admitting Unavailable LAKESHIA NOGUERA Attending Unavailable DEMETRI XAVIER Referring Unavailable ZAIRA APONTE Primary Care Unavailable DEMETRI XAVIER Attending Unavailable DEMETRI XAVIER Referring Unavailable ZAIRA APONTE Primary Care Unavailable ROSA ELENA CEJA Referring Unavailable ROSA ELENA CEJA Attending Unavailable ZAIRA APONTE Primary Care Unavailable DEMETRI XAVIER Referring Unavailable DEMETRI XAVIER Attending Unavailable ZAIRA APONTE Primary Care Unavailable ZAIRA APONTE Primary Care Unavailable ZAIRA DELGADO Referring Unavailable ZAIRA DELGADO Admitting Unavailable LAKESHIA NGOUERA Attending Unavailable LAKESHIA NOGUERA Attending Unavailable DEMETRI XAVIER Admitting Unavailable DEMETRI XAVIER Referring Unavailable ZAIRA APONTE Primary Care Unavailable Allergies Allergy Classification Reported Allergen(s) Allergy Type Date of Onset Reaction(s) Facility (8 sources) Bee/Wasp/Ant venom; Translations: [BEE STING KIT] Propensity to adverse reactions to drug 1 [facility] (5 sources) Bee Sting Allergy to substance 8 Rash, Itching, Shortness of Breath [facility] Medications Current Medications Medication Drug Class(es) Dates Sig (Normalized) Sig (Original) enteric contrast (will be provided with radiology test) (1 source) Start: 03-31-2022 End: 04-01-2022 enteric contrast (will be provided with radiology test) For CT ABD/PEL W IVCON Routine order Administer, As Directed One Time Only, via Oral, Rectal, both Oral and Rectal, Enteric Tube, Stoma or Indwelling Catheter, Enteric Contrast as designated per enteric contrast guidelines 1 Each 0 03/31/2022 04/01/2022 Active Completed/Discontinued Medications Medication Drug Class(es) Dates Sig (Normalized) Sig (Original) acetaminophen 500 mg oral tablet (5 sources) Start: 11-14-2020 take 2 tablets by mouth every six hours acetaminophen (TYLENOL) 500 mg tablet Take 2 tablets by mouth every 6 hours. 40 tablet 0 11/14/2020 Active Problems Active Problems Problem Classification Problem Date Documented Date Episodic/Chronic Endometriosis (13 sources) Endometriosis (clinical); Translations: [Endometriosis, unspecified] Onset: 12-19-2019 09-01-2021 Chronic Esophageal disorders (5 sources) Gastroesophageal reflux disease; Translations: [Gastro-esophageal reflux disease without esophagitis] Onset: 09-01-2021 09-01-2021 Chronic Menstrual disorders (5 sources) Dysmenorrhea; Translations: [Dysmenorrhea, unspecified] Onset: 11-13-2019 11-13-2019 Chronic Nonmalignant breast conditions (4 sources) Pain of breast; Translations: [Mastodynia] Onset: 07-12-2022 Episodic Other female genital disorders (1 source) Pelvic floor dysfunction; Translations: [Other specified conditions associated with female genital organs and menstrual cycle] Episodic Other female genital disorders (2 sources) Other specified conditions associated with female genital organs and menstrual cycle; Translations: [Other specified conditions associated with female genital organs and menstrual cycle] Onset: 07-12-2022 Episodic Thyroid disorders (10 sources) Felix thyroiditis; Translations: [Autoimmune thyroiditis] Onset: 12-19-2019 09-01-2021 Chronic Unclassified (2 sources) Myalgia, unspecified site; Translations: [MYALGIA UNSPECIFIED SITE] Onset: 04-20-2020 Past or Other Problems Problem Classification Problem Date Documented Da te Episodic/Chronic Abdominal pain (20 sources) Pain in pelvis; Translations: [Pain in female pelvis] Onset: 11-13-2019 02-03-2020 Episodic Genitourinary symptoms and ill-defined conditions (5 sources) Dysuria; Translations: [Dysuria] Onset: 11-13-2019 11-13-2019 Episodic Other disorders of stomach and duodenum (5 sources) Nonulcer dyspepsia; Translations: [Functional dyspepsia] Onset: 10-24-2021 10-24-2021 Episodic Other female genital disorders (5 sources) Polyp of corpus uteri; Translations: [Polyp of corpus uteri] Onset: 12-19-2019 12-19-2019 Episodic Other gastrointestinal disorders (5 sources) Constipation; Translations: [Constipation, unspecified] Onset: 11-13-2019 11-13-2019 Episodic Other screening for suspected conditions (not mental disorders or infectious disease) (6 sources) Liver function tests abnormal; Translations: [Abnormal results of liver function studies] Onset: 11-13-2019 Episodic Ovarian cyst (5 sources) Cyst of left ovary; Translations: [Unspecified ovarian cyst, left side] Onset: 06-17-2018 06-17-2018 Episodic Residual codes; unclassified (2 sources) Other specified postprocedural states; Translations: [Other specified postprocedural states] Onset: 10-19-2021 Episodic Results Test Name Value Interpretation Reference Range Facil ity Vital Signs Date Time Vital Sign Value Performing Clinician Celi oliveros 06-21-2022 09:54-0400 Body height 162.6 cm Demetri Xavier MD Work Phone: [facility] 06-21-2022 09:54-0400 Body mass index (BMI) [Ratio] 24.75 kg/m2 Demetri Xavier MD Work Phone: [facility] 06-21-2022 09:54-0400 Body weight 65.41 kg Demetri Xavier MD Work Phone: [facility] 06-21-2022 09:54-0400 Diastolic blood pressure 73 mm[Hg] Demetri Xavier MD Work Phone: [facility] 06-21-2022 09:54-0400 Heart rate 71 /min Demetri Xavier MD Work Phone: [facility] 06-21-2022 09:54-0400 Systolic blood pressure 127 mm[Hg] Demetri Xavier MD Work Phone: [facility] Encounters Encounter Date Encounter Type Care Provider Facility Start: 10-04-2022 Documentation procedure Corinne lang PT [facility] Start: 07-26-2022 End: 07-30-2022 ambulatory [facility] Start: 07-26-2022 End: 07-26-2022 ambulatory Corinne Noguera PT [facility] Start: 07-26-2022 End: 07-26-2022 Manual pelvic examination Demetri Xavier MD Work Phone: [facility] Procedures Date Procedure Procedure Detail Performing Clinician Start: 04-17-2022 Ct abdomen & pelvis w/contrast material Emil Villarreal MD Work Phone: Start: 12-19-2019 Antibody screen Start: 11-27-2019 Colonoscopy Corinne roy PT Plan of Treatment Date Care Activity Detail Author Start: 11-27-2029 Screening for malignant neoplasm of colon [facility] Start: 08-13-2025 COLORECTAL CANCER SCREENING COLORECTAL CANCER SCREENING [facility] Start: 08-13-2025 Screening for malignant neoplasm of colon [facility] Start: 08-13-2025 SIGMOIDOSCOPY SIGMOIDOSCOPY [facility] Start: 10-24-2024 DIABETES SCREEN DIABETES SCREEN [facility] Start: 08-16-2022 End: 08-16-2022 ambulatory 08/16/2022 Treatment Rehabilitation Demetri Xavier MD [address] [place] [id number] Corinne Noguera, PT [facility] Start: 07-27-2022 Influenza vaccination [facility] Start: 07-12-2022 End: 07-12-2022 ambulatory 07/12/2022 Evaluation Rehabilitation Demetri Xavier MD [address] [id number] Corinne Noguera, PT [facility] Start: 07-12-2022 End: 07-12-2022 Patient encounter procedure 07/12/2022 Appointment Radiology Demetri Xavier MD [address] [address] [facility] Ultrasound Start: 07-12-2022 Subsequent hospital visit by physician 07/12/2022 Hospital Encounter Radiology Demetri Xavier MD [address] [address] [facility] Mammography Start: 10-19-2021 End: 10-19-2021 Patient encounter procedure 10/19/2021 Appointment [facility] [address] [address] [facility] MRI Start: 09-09-2021 End: 09-09-2021 ambulatory 09/09/2021 Treatment Rehabilitation Zaira Delgado MD [address] [place] [id number] Corinne Noguera, PT [facility] Start: 08-19-2021 End: 08-19-2021 ambulatory 08/19/2021 Treatment Rehabilitation Zaira Delgado MD [address] [place] [address] Corinne Noguera, [facility] Start: 08-05-2021 End: 08-05-2021 ambulatory 08/05/2021 Treatment Rehabilitation Zaira Delgado MD [address] [place] [id number] Corinne Noguera, [facility] Start: 07-27-2021 Influenza vaccination [facility] Start: 07-27-2020 Influenza vaccination given Sequential Influenza Vaccine (#1) [facility] Start: 06-22-2020 End: 06-22-2020 Treatment 06/22/2020 Treatment Rehabilitation Zaira Delgado MD [address] [place] [address] [phone] Corinne Noguera, [facility] Start: 06-14-2020 End: 06-14-2020 Treatment 06/14/2020 Treatment Rehabilitation Zaira Delgado MD [address] [place] [address] [phone] Corinne Noguera, [facility] Start: 02-17-2020 End: 02-17-2020 Treatment 02/17/2020 Treatment Rehabilitation Zaira Delgado MD [address] [place] [address] [phone] Corinne Noguera, [facility] Start: 02-10-2020 End: 02-10-2020 Treatment 02/10/2020 Treatment Rehabilitation Zaira Delgado MD [address] [place] [address] [phone] Corinne Noguera, [facility] Start: 07-27-2019 Influenza vaccination given Sequential Influenza Vaccine (#1) [facility] Start: 2019 COLOGUARD (FIT-DNA) COLOGUARD (FIT-DNA) [facility] Start: 2019 Colonoscopy COLONOSCOPY [facility] Start: [address] COLONOGRAPHY [facility] Start: 2019 FECAL OCCULT BLOOD FECAL OCCULT BLOOD [facility] Start: 2019 LIPID SCREEN LIPID SCREEN [facility] Start: 2014 Mammography MAMMOGRAM [facility] Start: 2014 Screening for malignant neoplasm of breast Mammogram [facility] Start: 2004 HPV TESTING HPV TESTING [facility] Start: 1995 PAP TESTING PAP TESTING [facility] Start: 1993 Urine microalbumin profile DTAP,TDAP,TD (1 - Tdap) [facility] Start: 1992 Hepatitis C antibody, confirmatory test Hepatitis C Screening [facility] Start: 1992 Hepatitis C screening Hepatitis C Screening [facility] Start: 1992 HEPATITIS C SCREENING HEPATITIS C SCREENING [facility] Start: 1992 HIV SCREENING HIV SCREENING [facility] Start: 1989 HIV screening HIV Screening [facility] Start: 1986 COVID-19 Vaccine (1) COVID-19 Vaccine (1) [facility] Start: 1986 Depression screening using PHQ-9 (Patient Health Questionnaire 9) score [facility] Start: 1979 COVID-19 VACCINE (#1) COVID-19 VACCINE (#1) [facility] Start: 1979 COVID-19 Vaccine (1) COVID-19 Vaccine (1) [facility] Start: 1977 History and physical examination, annual for health maintenance Wellness Visit [facility] Start: 1974 COVID-19 Vaccine (#1) COVID-19 Vaccine (#1) [facility] Start: 1974 Screening for malignant neoplasm of cervix Pap Smear [facility] Start: 1974 Screening for malignant neoplasm of colon [facility] Start: 1974 Screening mammography Mammogram [facility] Start: 1974 Tetanus vaccination Tetanus: Every 10yrs [facility] End: 04-30-2023 Ct abdomen & pelvis w/contrast material CT ABD/PEL W IVCON Radiology Routine Left upper quadrant abdominal pain 1 Occurrences starting 03/31/2022 until 04/30/2023 [facility] Work Phone: Payers Date Payer Category Payer Medicaid [facility] MANAGED [facility] MEDICAID COMMUNITY PLAN xxxxxxxxx 2019-Present xxxxxxxxx [id number] 2019 Medicaid [id number] 2019 Medicaid [facility] MANAGED [facility] MEDICAID COMMUNITY PLAN [id number] 2019-Present [phone] [address] [place] [address] [id number] 1974 Unknown [id number] [id number]. [id number] 1974 Unknown [id number] [id number]. 2.651 1974 Unknown [id number] [id number]. [id number] 1974 Unknown [id number] [id number]. [id number] 1974 Unknown [id number] [id number]. [id number] 1974 Unknown [id number] [id number]. 2.903 1974 Unknown [id number] [id number]. 2.903 1974 Unknown [id number] [id number]. 2.903 1974 Unknown [id number] [id number]. 2.903 1974 Unknown [id number] [id number]. [id number] 1974 Unknown [id number] [id number] 1959 Private Health Insurance [id number] Social History Date Type Detail Facility Tobacco smoking stat [facility] Unknown if ever smoked [facility] Start: 1975 Sex Assigned At Not on file [facility] Tobacco smoking stat [facility] Tobacco smoking consumption unknown [facility] Start: 09-24-2021 End: 07-26-2022 Exposure to SARS-CoV-2 (event) Not sure [facility] Start: 06-07-2018 End: 08-30-2021 Tobacco smoking status NHIS Never smoked tobacco [facility] Start: 06-07-2018 End: 08-30-2021 Tobacco use and exposure Smokeless tobacco non-user [facility] Start: 06-10-2021 Alcohol intake Current non-dr chicken boner of alcohol (finding) [facility] Clinical Notes 06-10-2021 to 10-04-2022 Corinne Noguera, PT - 10/04/2022 9:29 AM César Noguera PT - 07/26/2022 3:15 PM Bj Xavier MD - 06/23/2022 11:07 AM EDTTelephone Encounter - [facility] - 05/05/2022 9:48 AM EDT Note Date & Type Note Facility 10-04-2022 History of Presen t illness Narrative Discharged from PT. documented in this encounter [facility] 07-26-2022 History of Presen t illness Narrative [facility] DAILY TREATMENT NOTE Today's Date 07/26/2022 Patient Name: Tequila Knapp Date of : 1975 Current Visit #: 2 Authorized Visits: 7 Case Name: Pelvic pain History: Pre-Treatment Pain Scale: 0 Symptoms: gradually improved Functional Diagnosis: 1. Pelvic pain in female Clinical Information: Subjective: Patient reports she is not having as much sharp pain today, feels more like inflammation. Has also had some problems with fluid retention. Objective Added cross body stretching to help reduce inflammation. Added kegel exercises and bridging for strengthening. Uses vibration tool for muscle relaxation of pelvic floor tightness. Treatments: Physical Therapy Exercise Log - 07/26/22 2648 OTHER Notes Pelvic pain Therapeutic Exercise (43884) Intervention DKC, torso rot, piriformis stretch 5 sec 10 times eaach Parameters Cross body stretch 10 times Intervention Pelvic brace supine 5 sec 10 times Manual Therapy (18830) Intervention MFR abdominal wall, internal release Parameters 30 mins, using vibrating tool Additional Exercises Add more exercises? Yes Modalities Modalities Electrical Stim - Unattended PT Treatment Times Therex Total Time 15 Manual Therapy Total Time 15 Direct Treatment Time 30 Total Treatment Time 30 Goals: Physical Therapy Ortho Goals: The patient will demonstrate good understanding of pelvic floor strengthening to reduce leakage. The patient will increase pelvic floor strength to 4+/5 within 2 months. The patient will reduce pelvic pain within 2 months. Patient Education: Quality of movement and Written HEP with patient demonstrated understanding. Post-Treatment Pain Scale: 1 Assessment: Patient had an expected response to treatment. Skilled Intervention demonstrated by modifications of treatment per exercise log including increased load and safety interventions per exercise log. Progress towards goals as expected. Plan for Next Visit: Treatment Visit with focus on manual therapy. Corinne Noguera PT State License, [id number] documented in this encounter [facility] 06-23-2022 History of Presen t illness Narrative Subjective Patient ID: Tequila Knapp is a 47 y.o. female. Here for follow up on her pelvic pain and recent breast issues. She has an extensive history of uterine fibroids and severe endometriosis. She had an extensive removal of endometriosis at another facility in recent past. She had declined to have a hysterectomy at the time. She had a return of the pelvic pain, so we ordered an MRI in September 2021. She returns today for follow up evaluation. She also was having left breast issues and had imaging done at an outside facility. She was supposed to have a 6 month follow up US and imaging but has not done that. She now wishes to have imaging done here, instead of [place]. The following portions of the patient's history were reviewed and updated as appropriate: allergies, current medications, past family history, past medical history, past social history, past surgical history, and problem list. Review of Systems Constitutional: Negative for appetite change and fever. HENT: Negative for nosebleeds. Eyes: Negative for photophobia. Respiratory: Negative for cough and shortness of breath. Cardiovascular: Negative for chest pain and leg swelling. Gastrointestinal: Negative for abdominal pain, constipation, diarrhea, nausea and vomiting. Endocrine: Negative for cold intolerance and polydipsia. Genitourinary: Positive for pelvic pain and vaginal pain. Negative for difficulty urinating, dysuria, frequency and urgency. Musculoskeletal: Negative for joint swelling. Skin: Negative for rash. Neurological: Negative for dizziness. Hematological: Does not bruise/bleed easily. Psychiatric/Behavioral: Negative for suicidal ideas. All other systems reviewed and are negative. Objective Physical Exam Constitutional: Appearance: She is well-developed. Pulmonary: Effort: Pulmonary effort is normal. Abdominal: Palpations: Abdomen is soft. Musculoskeletal: General: Normal range of motion. Skin: General: Skin is warm and dry. Neurological: Mental Status: She is alert and oriented to person, place, and time. Psychiatric: Behavior: Behavior normal. Thought Content: Thought content normal. Judgment: Judgment normal. Assessment/Plan: Diagnoses and all orders for this visit: High-tone pelvic floor dysfunction - Ambulatory Ref to [facility] (PT/OT/ST); Future She has previously done pelvic floor PT and felt that it helped with her pelvic pain. She wishes to restart the physical therapy. We discussed options and will place the referral as patient requested. Pelvic pain in female The MRI from Sep 2021 was reviewed, no suspicious nodules noted, no areas seen suspicious for recurrent endometriosis. We did discuss that she could still have recurrent endometriosis but not able to be seen on imaging studies. I also discussed that with the extent of surgery she had that she may have adhesive disease as well, which may be contributing to her pelvic pain. She understands, does not desire any intervention at this time. Breast pain in female - Breast Left Complete; Future I dont have records to review at this time. We discussed breast surveillance, will order repeat imaging here. She understands they may want diagnostic mammogram as well. documented in this encounter [facility] 05-05-2022 Miscellaneous Notes Called and spoke with patient. Advised CT scan results were normal for pancreas per Dr. Sadik. Patient expressed understanding and thanks. Ghada Mahmood MA Patient called to discuss results of CT scan done on 04/17. Please advice Please call the patient to let her know that her CT scan is reassuring. The pancreas appears completely normal. documented in this encounter [facility] 04-17-2022 Note HNO ID: [id number] Author: RT Ashwini(R) Service: ? Author Type: Sociocultural Anthropology Professor Type: Progress Notes Filed: 04/17/2022 2:58 PM Note Text: Radiology Service Progress Note DATE OF SERVICE: April 17, 2022 TIME: 2:58 PM PATIENT IDENTITY VERIFICATION COMPLETED USING TWO (2) STANDARD IDENTIFIERS: Name and Date of confirmed by patient verbally. FALL SCREENING: Has the patient had 2 falls in the last year or 1 fall with injury or currently using an Ambulatory Assistive Device (Walker, Cane, Wheelchair, Crutches, etc.)? No PATIENT GENDER DATA: Female. status: : No status: NO. PATIENT RELEVANT IMPLANT DATA REVIEWED: Yes ALLERGIES: Reviewed and unchanged CONTRAST ALLERGY: NO. EXAM: CT -CONTRAST INDUCED NEPHROPATHY RISK FACTORS: Not applicable CREATININE: Creatinine Date Value Ref Range Status 10/24/2021 0.64 0.58 - 0.96 mg/dL Final 11/14/2020 0.65 0.58 - 0.96 mg/dL Final 11/12/2020 0.58 0.58 - 0.96 mg/dL Final eGFR-All Other Races Date Value Ref Range Status 10/24/2021 >60 . Final Comment: eGFR (Estimated GFR) Units of measure: mL/min/1.73 meters squared eGFR is derived from the reexpressed MDRD Study equation using the following parameters: serum creatinine, age, gender and race. The creatinine assay has been calibrated to be traceable to IDMS. An eGFR <60 mL/min/1.73m2 for >3 months is consistent with chronic kidney disease. Refer to KDOQI guidelines for clinical interpretation. In patients with unstable renal function, e.g. those with acute kidney injury, the eGFR may not accurately reflect actual GFR. Note: On 01/21/2022, the eGFR calculation will be updated to the NKF-ASN Task Force recommended 2020 CKD-EPI creatinine equation which does not include a race variable. For more information or to access a 2020 CKD-EPI calculator, visit the National Kidney Foundation website at kidney.org/professionals/kdoqi/ gfr_calculator. eGFR- Date Value Ref Range Status 10/24/2021 >60 Final P.O.C.T. RESULTS: POC done: Yes, See Lab Tab April 17, 2022 TREATMENT: N/A PERIPHERAL IV DATA: Ambulatory: A peripheral IV was started in the Left antecubital site with a Angio cath: 22 gauge. RADIOLOGY DEPARTMENT: CT; Exam(s) Completed: Abdomen/Pelvis SIGNATURE: RT Vladimir(R) PATIENT NAME: Tequila Knapp DATE: April 17, 2022 TIME: 2:58 PM [facility] 04-17-2022 History of Presen t illness Narrative Radiology Service Progress Note DATE OF SERVICE: April 17, 2022 TIME: 2:58 PM PATIENT IDENTITY VERIFICATION COMPLETED USING TWO (2) STANDARD IDENTIFIERS: Name and Date of confirmed by patient verbally. FALL SCREENING: Has the patient had 2 falls in the last year or 1 fall with injury or currently using an Ambulatory Assistive Device (Walker, Cane, Wheelchair, Crutches, etc.)? No PATIENT GENDER DATA: Female. status: : No status: NO. PATIENT RELEVANT IMPLANT DATA REVIEWED: Yes ALLERGIES: Reviewed and unchanged CONTRAST ALLERGY: NO. EXAM: CT -CONTRAST INDUCED NEPHROPATHY RISK FACTORS: Not applicable CREATININE: Creatinine Date Value Ref Range Status 10/24/2021 0.64 0.58 - 0.96 mg/dL Final 11/14/2020 0.65 0.58 - 0.96 mg/dL Final 11/12/2020 0.58 0.58 - 0.96 mg/dL Final eGFR-All Other Races Date Value Ref Range Status 10/24/2021 >60 . Final Comment: eGFR (Estimated GFR) Units of measure: mL/min/1.73 meters squared eGFR is derived from the reexpressed MDRD Study equation using the following parameters: serum creatinine, age, gender and race. The creatinine assay has been calibrated to be traceable to IDMS. An eGFR <60 mL/min/1.73m2 for >3 months is consistent with chronic kidney disease. Refer to KDOQI guidelines for clinical interpretation. In patients with unstable renal function, e.g. those with acute kidney injury, the eGFR may not accurately reflect actual GFR. Note: On 01/21/2022, the eGFR calculation will be updated to the NKF-ASN Task Force recommended 2020 CKD-EPI creatinine equation which does not include a race variable. For more information or to access a 2020 CKD-EPI calculator, visit the [employer] website at kidney.org/professionals/kdoqi/ gfr_calculator. eGFR- Date Value Ref Range Status 10/24/2021 >60 Final P.O.C.T. RESULTS: POC done: Yes, See Lab Tab April 17, 2022 TREATMENT: N/A PERIPHERAL IV DATA: Ambulatory: A peripheral IV was started in the Left antecubital site with a Angio cath: 22 gauge. RADIOLOGY DEPARTMENT: CT; Exam(s) Completed: Abdomen/Pelvis SIGNATURE: RT Vladimir(R) PATIENT NAME: Tequila Knapp DATE: April 17, 2022 TIME: 2:58 PM documented in this encounter [facility] 03-31-2022 Miscellaneous Notes Spoke with patient regarding scheduling CT scan. She is aware of updated orders. She will call to get scheduled. Rahel Turner RN Unlikely to get CT pancreas covered. Will try for standard CT abd/pelv with IV and oral contrast. Orders placed. Given her history of abdominal pain, this diagnosis code was used. CT scan in 2018 did not comment at all about the pancreas and was performed at an outside facility. Pt was ordered MRI at office visit 10/24/21 as pt's sister had pancreatic cancer at 32 y/o. MRCP denied Now CT denied. I tried to contact patient to discuss, no answer. Dr. Villarreal please advise to recommendations on CT denial. What about CA19-9? Rahel Turner RN Please review PSR message and advise patient. Ghada Mahmood MA Pt calling to let Dr. Villarreal no that her insurance denied her CT. Pt asking what her next steps are. Please call to let her know. Thank you! documented in this encounter [facility] 10-12-2021 History of Presen t illness Narrative [facility] DAILY TREATMENT NOTE Today's Date 10/12/2021 Patient Name: Tequila Knapp Date of : 1975 Current Visit #: 5 Authorized Visits: 9 Case Name: Pelvic pain History: Pre-Treatment Pain Scale: 1 Symptoms: stabilized Functional Diagnosis: 1. Pelvic pain in female Clinical Information: Subjective: Patient reports she saw MD and ordered MRI. MD said endometriosis might be growing back. Patient states pain increases with the types of work she is doing. Objective Discussed home exercises and eliminated the exercises that exacerbate her symptoms. Discussed work movements that flare up pain. Performed MFR to abdominal wall with less tightness noted than 2 months ago at her last visit with me. Performed internal release using vibrating tool on low. Patient has increase resistance on right side more than left. Patient has MRI next week. Will follow up with us as needed after MRI. Treatments: Physical Therapy Exercise Log - 10/12/21 1357 OTHER Notes Pelvic pain Therapeutic Exercise (51095) Intervention DKC, torso rot, piriformis stretch 5 sec 10 times eaach Manual Therapy (24491) Intervention MFR abdominal wall, internal release Parameters 30 mins, using vibrating tool Additional Exercises Add more exercises? Yes Modalities Modalities Electrical Stim - Unattended PT Treatment Times Therex Total Time 10 Manual Therapy Total Time 30 Direct Treatment Time 40 Total Treatment Time 40 Goals: Physical Therapy Ortho Goals: The patient will demonstrate good understanding of pelvic floor strengthening to reduce leakage. The patient will increase pelvic floor strength to 4+/5 within 2 months. The patient will reduce pelvic pain within 2 months. Patient Education: Quality of movement and Written HEP with patient demonstrated understanding. Post-Treatment Pain Scale: 1 Assessment: Patient had an expected response to treatment. Skilled Intervention demonstrated by modifications of treatment per exercise log including increased load and safety interventions per exercise log. Progress towards goals as expected. Plan for Next Visit: Treatment Visit with focus on manual therapy. Corinne Noguera PT State License, [id number] documented in this encounter [facility] 08-19-2021 History of Presen t illness Narrative [facility] DAILY TREATMENT NOTE Today's Date 08/19/2021 Patient Name: Tequila Knapp Date of : 1975 Current Visit #: 4 Authorized Visits: 9 Case Name: Pelvic pain History: Pre-Treatment Pain Scale: 4 Symptoms: stabilized Functional Diagnosis: 1. Pelvic pain in female Clinical Information: Subjective: Patient reports she has been having a lot of pain and not doing too good. 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 Objective Patient did not want electric stimulation today. She feels that is irritating her tissue. Worked on exercises and eliminated cross body stretch due to increase in pain. Tightness noted on left more than right side with vaginally internal release. There is less tightness into the rib cage on the left. Gave patient information about Dr. Demetri Xavier since her surgeon has moved to [place]. Treatments: Physical Therapy Exercise Log - 08/19/21 1433 OTHER Notes Pelvic pain Therapeutic Exercise (11898) Intervention DKC, torso rot, piriformis stretch 5 sec 10 times eaach Manual Therapy (94305) Intervention MFR abdominal wall, internal release Parameters 30 mins Additional Exercises Add more exercises? Yes Modalities Modalities Electrical Stim - Unattended Parameters vaginal IFC 10 mins PT Treatment Times Therex Total Time 15 Manual Therapy Total Time 30 Direct Treatment Time 45 Total Treatment Time 45 Goals: Physical Therapy Ortho Goals: The patient will demonstrate good understanding of pelvic floor strengthening to reduce leakage. The patient will increase pelvic floor strength to 4+/5 within 2 months. The patient will reduce pelvic pain within 2 months. Patient Education: Quality of movement with patient demonstrated understanding. Post-Treatment Pain Scale: 3 Assessment: Patient had an expected response to treatment. Skilled Intervention demonstrated by modifications of treatment per exercise log including increased load and safety interventions per exercise log. Progress towards goals as expected. Plan for Next Visit: Treatment Visit with focus on manual therapy. Corinne Noguera PT State License, [id number] documented in this encounter [facility] 07-15-2021 History of Presen t illness Narrative [facility] DAILY TREATMENT NOTE Today's Date 07/15/2021 Patient Name: Tequila Knapp Date of : 1975 Current Visit #: 2 Authorized Visits: 9 Case Name: Pelvic pain History: Pre-Treatment Pain Scale: 2 Symptoms: gradually improved Functional Diagnosis: 1. Pelvic pain in female Clinical Information: Subjective: Patient states she is better than she was. Objective Tightness noted in abdominal wall and internally with manual therapy. Worked on lower body stretching for home exercises. Added IFC vaginally to reduce pelvic pain. Treatments: Physical Therapy Exercise Log - 07/15/21 1420 OTHER Notes Pelvic pain Therapeutic Exercise (66913) Intervention DKC, torso rot, piriformis stretch 5 sec 10 times eaach Manual Therapy (05871) Intervention MFR abdominal wall, internal release Parameters 15 mins Additional Exercises Add more exercises? Yes Modalities Modalities Electrical Stim - Unattended Parameters vaginal IFC 10 mins PT Treatment Times Therex Total Time 15 Manual Therapy Total Time 10 Modalities Total Time 10 Direct Treatment Time 35 Total Treatment Time 40 Goals: Physical Therapy Ortho Goals: The patient will demonstrate good understanding of pelvic floor strengthening to reduce leakage. The patient will increase pelvic floor strength to 4+/5 within 2 months. The patient will reduce pelvic pain within 2 months. Patient Education: Quality of movement with patient demonstrated understanding. Post-Treatment Pain Scale: 1 Assessment: Patient had an expected response to treatment. Skilled Intervention demonstrated by modifications of treatment per exercise log including increased load and safety interventions per exercise log. Progress towards goals as expected. Plan for Next Visit: Treatment Visit with focus on manual therapy to reduce pelvic pain Corinne Noguera PT State License, [id number] documented in this encounter [facility] 06-10-2021 Note HNO ID: [id number] Author: Zaira Delgado MD Service: ? Author Type: Physician Type: Progress Notes Filed: 06/15/2021 5:03 PM Note Text: CHRONIC PELVIC PAIN FOLLOW UP VISIT Tequila Knapp is a 46 year old female who presents for continued management of chronic pelvic pain. HISTORY SINCE LAST VISIT: pt states she has some flare ups at times Intensity of pain: mild at times Average Pain level: 4 on a scale of 0-10 Emergency room visits for pain since last visit: None Level of physical activity and mobility: better, working a lot more since the surgery Quality of sleep: ok Mood: ok Side effects of medications for pain: none Notes from last visit 12/04/20: - cleared for all activities - continue pelvic rest and no lifting >10 lbs - wrote Rx for FROY for menstrual suppression and will start taking if pain develops- Asked her to call if pain worsens - RTC 3-6 months In clinic today, pt reports doing well. She's increased her work load and reports no pain during her menses, but still c/o constipation which she manages with laxatvies along with sxs resembling contact dermatitis, vulvodynia, and an increased libido that causes abdominal pain . Various non-surgical tx options were discussed with the patient including OCP use, PFPT, Rx Vaginal valium, and possible vaginal botox injections. SUBJECTIVE Review of Systems Constitutional: Negative for fever. (+) mastalgia in left breast Eyes: Negative. Respiratory: Negative for cough. Cardiovascular: Negative for chest pain. Gastrointestinal: Positive for constipation. Genitourinary: Negative for dysuria. (+) vulvodynia Musculoskeletal: (+) pelvic pain Skin: (+) contact dermatitis All other systems reviewed and are negative. OBJECTIVE BP 139/79 Ht 5' 4 (1.63m) Wt 136 lb (61.7kg) LMP 05/14/2021 BMI 23.33 kg/(m2). PHYSICAL EXAMINATION: Physical Exam Vitals reviewed. Exam conducted with a cost control analyst present. Constitutional: General: She is not in acute distress. Appearance: Normal appearance. She is not diaphoretic. HENT: Head: Normocephalic and atraumatic. Right Ear: External ear normal. Left Ear: External ear normal. Nose: Nose normal. Eyes: General: No scleral icterus. Conjunctiva/sclera: Conjunctivae normal. Pupils: Pupils are equal, round, and reactive to light. Neck: Trachea: No tracheal deviation. Cardiovascular: Rate and Rhythm: Normal rate and regular rhythm. Heart sounds: Normal heart sounds. No murmur heard. No friction rub. No gallop. Pulmonary: Effort: Pulmonary effort is normal. No respiratory distress. Breath sounds: Normal breath sounds. No wheezing or rales. Abdominal: General: Bowel sounds are normal. There is no distension. Palpations: Abdomen is soft. Tenderness: There is no abdominal tenderness. There is no guarding or rebound. Hernia: No hernia is present. Genitourinary: Exam position: Supine. Labia: Right: No rash, lesion or injury. Left: No rash, lesion or injury. Comments: MWDPAINEXAM Vaginal Vestibular tenderness NT Rectal tenderness N Bladder base tenderness N Uterus ne Retrocervix ne Adnexa ne Pelvic Floor Musculature RIGHT SIDED Pubococcygeus 3 Iliococcygeus ne Coccygeus ne Obturator ne LEFT SIDED Pubococcygeus ne Iliococcygeus ne Coccygeus ne Obturator ne (Pain Scale 1 to 3, 3= extreme) RV exam - deferred Musculoskeletal: Cervical back: Normal range of motion. Skin: General: Skin is warm and dry. Coloration: Skin is not pale. Findings: No erythema or rash. Neurological: Mental Status: She is alert and oriented to person, place, and time. Motor: No abnormal muscle tone. Psychiatric: Behavior: Behavior normal. Thought Content: Thought content normal. ASSESSMENT Encounter Diagnosis ICD-10-CM 1. Chronic female pelvic pain R10.2 CONSULT TO PHYSICAL THERAPY G89.29 CONSULT TO PHYSICAL THERAPY (OUTSIDE) diazePAM (VALIUM) 5 mg tablet DISCONTINUED: diazePAM (VALIUM) 5 mg tablet 2. Adenomyosis N80.0 CONSULT TO PHYSICAL THERAPY CONSULT TO PHYSICAL THERAPY (OUTSIDE) diazePAM (VALIUM) 5 mg tablet DISCONTINUED: diazePAM (VALIUM) 5 mg tablet 3. High-tone pelvic floor dysfunction N94.89 CONSULT TO PHYSICAL THERAPY CONSULT TO PHYSICAL THERAPY (OUTSIDE) diazePAM (VALIUM) 5 mg tablet DISCONTINUED: diazePAM (VALIUM) 5 mg tablet 4. Dysmenorrhea N94.6 CONSULT TO PHYSICAL THERAPY CONSULT TO PHYSICAL THERAPY (OUTSIDE) diazePAM (VALIUM) 5 mg tablet DISCONTINUED: diazePAM (VALIUM) 5 mg tablet 5. Fibroids D21.9 CONSULT TO PHYSICAL THERAPY CONSULT TO PHYSICAL THERAPY (OUTSIDE) diazePAM (VALIUM) 5 mg tablet DISCONTINUED: diazePAM (VALIUM) 5 mg tablet 6. Endometriosis N80.9 CONSULT TO PHYSICAL THERAPY CONSULT TO PHYSICAL THERAPY (OUTSIDE) diazePAM (VALIUM) 5 mg tablet DISCONTINUED: diazePAM (VALIUM) 5 mg tablet PLAN - Follow up with Dr.Jessica Iniguez for chronic pelvic pain manageme (more content not included)... [facility] documented in this encounter [facility] note* Diagnosis Pelvic pain in female Unspecified symptom associated with female genital organs documented in this encounter [facility] note* Diagnosis Pelvic pain in female Unspecified symptom associated with female genital organs documented in this encounter [facility] note* Diagnosis Abnormal results of liver function studies Nonspecific abnormal results of liver function study documented in this encounter [facility] note* Diagnosis Left upper quadrant abdominal pain- Primary documented in this encounter [facility] note* Diagnosis Left upper quadrant abdominal pain documented in this encounter [facility] note* Diagnosis High-tone pelvic floor dysfunction- Primary Pelvic pain in female Unspecified symptom associated with female genital organs Breast pain in female Mastodynia [facility] [place]* Diagnosis Breast pain in female- Primary Mastodynia documented [facility] encounter [facility] [place] [facility]* Diagnosis Pelvic pain in female- Primary Unspecified symptom associated with female genital organs documented in this encounter [facility] Summary Purpose Family History No Family History Records FoundNo Family History Records FoundNo Family History Records FoundNo Family History Records FoundNo Family History Records FoundNo Family History Records FoundNo Family History Records Found Advance Directives Documents on File Type Date Recorded 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 Advance Directives and Living Will Documents on File Type Date Recorded 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 Advance Directive(s) 11/11/2020 5:32 AM Advance Directive(s) 06/19/2018 1:05 PM Advance Directive(s) 06/18/2018 9:52 AM Documents on File Type Date Recorded 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 Advance Directive(s) 11/11/2020 5:32 AM Advance Directive(s) 06/19/2018 1:05 PM Advance Directive(s) 06/18/2018 9:52 AM Procedure Findings Note HNO ID: [id number] Author: Hilary Sierra Service: Gynecology Author Type: Resident Type: Brief Op Note Filed: 12/23/2019 11:16 AM Note Text: BRIEF OPERATIVE / PROCEDURE NOTE LOG ID: [id number] SURGERY/PROCEDURE DATE: 12/23/2019 INCISION/PROCEDURE START TIME: 10:20 AM INCISION CLOSE/PROCEDURE END TIME: 11:06 AM SURGEON(S)/PROCEDURALIST(S) AND CONSULTING HR PROFESSIONAL(S): Surgeon(s) and Role: * Zaira Delgado - Primary * Cristiana Sierra - Resident - Assisting No Additional Staff SURGERY/PROCEDURE(S): Hysteroscopy, Polypectomy, Endometrial sampling under direct visualization, curettage ANESTHESIA: General FINDINGS: Anterior polyp about 1x1cm, narrow vaginal introitus, stenotic cervix, normal appearing endometrium ESTIMATED BLOOD LOSS: 10 mls SPECIMENS: Polyp, endometrial curettings COMPLICATIONS: None PRE-OP/PRE-PROCEDURE DIAGNOSIS: Pelvic pain, POST-OP/POST-PROCEDURE DIAGNOSIS: Pelvic pain in female [R10.2] Menorrhagia [N92.0] Endometrial polyp SIGNATURE: Cristiana Sierra MD PATIENT NAME: Tequila Waddell (more content not included)... History of Present Illness * Corinne Noguera, PT - 02/03/2020 10:00 AM EDT [facility] Evaluation Today's Date 02/03/2020 Patient Name: Tequila Knapp Date of : 1975 Case Name: Pelvic Pain Functional Diagnosis: 1. Pelvic pain 2. Endometriosis 3. Pelvic pain in female Clinical Information: Subjective Referring Diagnosis: Pelvic Pain History of Present Illness Chief Complaint/ Mechanism of Injury: Patient reports she was at [facility] due to pelvic pain. Difficulty working due to pain. Pain is in lower abdomen and goes into rib cage on left side. Keeps her from being able to work. Had hysterectomy 2 years ago and had polyp removed in November this year. Was put on control to help control endometriosis symptoms. With pills now when she gets tired the pain goes to her bones. Previous Treatment for this condition: Surgery and Alternative Techniques (please comment) Prior treatment effectiveness: mild Status: unchanged Hand dominance: right Pain Scale: Average Pain: 4/10 Pain at highest: 8/10 Aggravating factors: Main difficulty is not being able to work Red Flags: None Barriers to Care: None Fall risk screening Fallen 2 or more times in the last 12 months: No Injured as a result of a fall in the last 12 months: No Personal Goals: Relief of pain. 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 Difficulty performing internal evaluation with finger.Had to use smaller tool to penetrate vaginal cavity and perform assessment. Patient very sensitive to touch internally. Internal Pelvic Floor Exam Area: vaginal Pelvic floor strength: 5 Reps: 5 Quick Contractions: 5 Ability to relax: No Accessory Muscle Recruitment: Gluteals and Breath Holding Palpation: Tightness on lower abdominal wall. Used MFR to reduce tension in fascia. Tightness radiates into left rib cage. Treatments: Physical Therapy Exercise Log - 02/03/20 0927 OTHER Notes Pelvic Pain Therapeutic Exercise (43433) Intervention DKC, torso rot, butterfly stretch with SKC 10 times each Manual Therapy (04134) Intervention MFR abdominal wall left more than right, Interanl Release with tool Parameters 30 minutes PT Treatment Times Total Treatment Time 75 Treatment Plan: Frequency of Visits: once per week Duration: 4 weeks Interventions: Therapeutic Exercise and Manual Therapy Rehab Potential: good Goals: Physical Therapy Ortho Goals: The patient will be able to stand for more than 1 hour without pelvic pain. The patient will decrease tightness in fascia over abdominal wall with MFR by 75%. The patient will demonstrate good understanding of home exercise program. Patient Education provided: Patient given written home program. Clinical Impression: Patient will benefit frm therapy to reduce tightness in myofascial system in lower abdominal wall. She may benefit from internal release if she is able to relax enough to tolerate internal work. Corinne Noguera PT State License, [id number] documented in this encounter* Corinne Noguera, PT - 06/03/2020 2:30 PM EDT [facility] DAILY TREATMENT NOTE Today's Date 06/03/2020 Patient Name: Tequila Knapp Date of : 1975 Current Visit #: 2 Authorized Visits: 5 Case Name: Pelvic Pain History: Pre-Treatment Pain Scale: 3 Symptoms: gradually improved Functional Diagnosis: 1. Pelvic pain in female Clinical Information: Subjective: [place] better for a couple of days after last treatment. Has less pain today, but was worse 2 days ago. Objective Tightness in right abdominal wall more than left. Assessed left upper quadrant pain with no tightness noted. Sees surgeon in June. Treatments: Physical Therapy Exercise Log - 06/03/20 1442 OTHER Notes Pelvic Pain Therapeutic Exercise (06652) Intervention DKC, torso rot, butterfly stretch with SKC 10 times each Manual Therapy (12503) Intervention MFR abdominal wall left more than right, Interanl Release with tool Parameters 30 minutes PT Treatment Times Therex Total Time 15 Manual Therapy Total Time 15 Direct Treatment Time 30 Total Treatment Time 30 Goals: Physical Therapy Ortho Goals: The patient will be able to stand for more than 1 hour without pelvic pain. The patient will decrease tightness in fascia over abdominal wall with MFR by 75%. The patient will demonstrate good understanding of home exercise program. Patient Education: Quality of movement with patient demonstrated understanding. Post-Treatment Pain Scale: 2 Assessment: Patient had an expected response to treatment. Skilled Intervention demonstrated by modifications of treatment per exercise log including increased load and safety interventions per exercise log. Progress towards goals as expected. Plan for Next Visit: Treatment Visit with focus on manual therapy to reduce pain. Corinne Noguera PT State License, [id number] documented in this encounter* Corinne Noguera, PT - 06/22/2020 1:00 PM EDT [facility] DAILY TREATMENT NOTE Today's Date 06/22/2020 Patient Name: Tequila Knapp Date of : 1975 Current Visit #: 4 Authorized Visits: 5 Case Name: Pelvic Pain History: Pre-Treatment Pain Scale: 3 Symptoms: gradually improved Functional Diagnosis: 1. Pelvic pain in female Clinical Information: Subjective: Patient states when she first starting coming she had a lot of vaginal pain from eitherthe uterus or bladder when sitting. That pain is almost completely gone. She is concerned about left rib cage pain and is asking if I thought it was her pancreas. Objective Patient has tightness in left upper quadrant with manual therapy. Tightness in center of abdomen and around aorta. Patient is to see her surgeon on 07/23. Wants to wait until she sees him before doingmore therapy. Treatments: Physical Therapy Exercise Log - 06/22/20 1303 OTHER Notes Pelvic Pain Therapeutic Exercise (87196) Intervention DKC, torso rot, butterfly stretch with SKC 10 times each Manual Therapy (17541) Intervention MFR abdominal wall left more than right, Interanl Release with tool Parameters 30 minutes Goals: Physical Therapy Ortho Goals: The patient will be able to stand for more than 1 hour without pelvic pain. The patient will decrease tightness in fascia over abdominal wall with MFR by 75%. The patient will demonstrate good understanding of home exercise program. Patient Education: Quality of movement with patient demonstrated understanding. Post-Treatment Pain Scale: 1 Assessment: Patient had an expected response to treatment. Skilled Intervention demonstrated by modifications of treatment per exercise log including increased load and safety interventions per exercise log. Progress towards goals as expected. Plan for Next Visit: Hold Corinne Noguera PT State License, [id number] documented in this encounter* Corinne Noguera, PT - 06/14/2020 2:30 PM EDT [facility] DAILY TREATMENT NOTE Today's Date 06/14/2020 Patient Name: Tequila Knapp Date of : 1975 Current Visit #: 3 Authorized Visits: 5 Case Name: Pelvic Pain History: Pre-Treatment Pain Scale: 4 Symptoms: gradually improved Functional Diagnosis: 1. Pelvic pain in female Clinical Information: Subjective: Had cramps when she had her period, but not much pain now. Has some lower abdomen pain with stretches. Objective Reviewed home exercises and discussed avoiding standing too long at work to avoid increase in endometriosis pain. Tightness in ligt to cervix with manual internal release. Patietn discussing use of hormone or oils for pain. Treatments: Physical Therapy Exercise Log - 06/14/20 4839 OTHER Notes Pelvic Pain Therapeutic Exercise (75807) Intervention DKC, torso rot, butterfly stretch with SKC 10 times each Manual Therapy (01517) Intervention MFR abdominal wall left more than right, Interanl Release with tool Parameters 30 minutes PT Treatment Times Therex Total Time 15 Manual Therapy Total Time 15 Direct Treatment Time 30 Total Treatment Time 30 Goals: Physical Therapy Ortho Goals: The patient will be able to stand for more than 1 hour without pelvic pain. The patient will decrease tightness in fascia over abdominal wall with MFR by 75%. The patient will demonstrate good understanding of home exercise program. Patient Education: Quality of movement with patient demonstrated understanding. Post-Treatment Pain Scale: 3 Assessment: Patient had an expected response to treatment. Skilled Intervention demonstrated by modifications of treatment per exercise log including increased load and safety interventions per exercise log. Progress towards goals as expected. Plan for Next Visit: Treatment Visit with focus on manual therapy to reduce pain. Corinne Noguera, CATHERINE State License, [id number] documented in this encounter* Corinne Noguera, PT - 07/28/2020 8:30 AM EDT [facility] DAILY TREATMENT NOTE Today's Date 07/28/2020 Patient Name: Tequila Knapp Date of : 1975 Current Visit #: 5 Authorized Visits: 5 Case Name: Pelvic Pain History: Pre-Treatment Pain Scale: 5 Symptoms: gradually improved Functional Diagnosis: No diagnosis found. Clinical Information: Subjective: Saw family doctor and thinks the endometriosis is going around colon also. She is goingto see a colorectal surgeon to assist when she has surgery to remove endometriosis. Objective Patient is able to perform exercises without difficulty. Tightness in abdominal wall in upper left quadrant. Pain with internal release on the right. Less tightness at end of treatment. Treatments: Physical Therapy Exercise Log - 07/28/20 0842 OTHER Notes Pelvic Pain Therapeutic Exercise (35050) Intervention DKC, torso rot, butterfly stretch with SKC 10 times each Manual Therapy (48971) Intervention MFR abdominal wall left more than right, Interanl Release with tool Parameters 30 minutes PT Treatment Times Therex Total Time 15 Manual Therapy Total Time 30 Direct Treatment Time 45 Total Treatment Time 45 Goals: Physical Therapy Ortho Goals: The patient will be able to stand for more than 1 hour without pelvic pain. The patient will decrease tightness in fascia over abdominal wall with MFR by 75%. The patient will demonstrate good understanding of home exercise program. Patient Education: Quality of movement with patient demonstrated understanding. Post-Treatment Pain Scale: 3 Assessment: Patient had an expected response to treatment. Skilled Intervention demonstrated by modifications of treatment per exercise log including increased load and safety interventions per exercise log. Progress towards goals as expected. Plan for Next Visit: Treatment Visit with focus on manual therapy once a month. Corinne Noguera, CATHERINE State License, [id number] documented in this encounter Assessments Diagnosis Pelvic pain Endometriosis Endometriosis, site unspecified Pelvic pain in female Unspecified symptom associated with female genital organs Diagnosis Pelvic pain in female Unspecified symptom associated with female genital organs Reason for Referral Specialty Diagnoses / Procedures Referred By Contac t Referred To Contact CT IMAGING Diagnoses Left upper quadrant abdominal pain Procedures CT ABD/PEL W IVCON CT ABD & PELVIS W/[place] [id number] Imaging Referral ID Status Reason Start Date Expiration Date Visits Requested Visits Authorized [id number] Pending Review Auto-Generat ed Referral 03/31/2022 04/30/2023 1 1 Referral ID Status Reason Start Date Expiration Date V isits Requested Visits Authorized [id number] Closed Auto-Generate d Referral 03/31/2022 05/21/2022 2 2 Specialty Diagnoses / Procedures Referred By Contac t Referred To Contact Radiology Diagnoses Breast pain in female Procedures US Breast Left Complete Demetri Xavier MD [address] [place] [id number] Referral ID Status Reason Start Date Expiration Date Visits Re quested Visits Authorized [id number] Closed 06/21/2022 06/21/2023 1 1 Specialty Diagnoses / Procedures Referred By Contac t Referred To Contact Rehabilitation Diagnoses High-tone pelvic floor dysfunction Demetri Xavier MD [address] [place], [place] [phone] Referral ID Status Reason Start Date Expiration Date Visits Requested Visits Authorized [id number] Authorized Specialty Services Required/Pat ient's Best Interest 06/21/2022 06/21/2023 1 1 Specialty Diagnoses / Procedures Referred By Contac t Referred To Contact Radiology Diagnoses Breast pain in female Procedures Mammography Diagnostic Ben Bilateral Demetri Xavier MD [address] [place] [id number] Referral ID Status Reason Start Date Expiration Date V isits Requested Visits Authorized [id number] Authorized 07/10/2022 07/10/2023 1 1 Additional Source Comments INFORMATION SOURCE (unrecogn ized section and content) DATE CREATED AUTHOR AUTHOR'S ORGANIZ ATION 05/11/2020 [facility] DATE CREATED AUTHOR AUTHOR'S ORGANIZ ATION 10/26/2021 [facility] DATE CREATED AUTHOR AUTHOR'S ORGANIZ ATION 05/06/2022 [facility] DATE CREATED AUTHOR AUTHOR'S ORGANIZ ATION 06/23/2022 [facility] DATE CREATED AUTHOR AUTHOR'S ORGANIZ ATION 07/19/2022 [facility] DATE CREATED AUTHOR AUTHOR'S ORGANIZ ATION 08/26/2022 [facility] Reason for Visit (unrecogniz ed section and content) Specialty Diagnoses / Procedures Referred By Contac t Referred To Contact CT IMAGING Diagnoses Left upper quadrant abdominal pain Procedures CT ABD/PEL W IVCON CT ABD & PELVIS W/[place] [address] [place] [address] Ct Imaging Referral ID Status Reason Start Date Expiration Date V isits Requested Visits Authorized [id number] Closed Auto-Generate d Referral 03/31/2022 05/21/2022 2 2 Reason Comments Pelvic Floor Specialty Diagnoses / Procedures Referred By Contac t Referred To Contact Rehabilitation Diagnoses Chronic female pelvic pain Adenomyosis High-tone pelvic floor dysfunction Dysmenorrhea Fibroids Endometriosis Zaira Delgado MD [address] [address] [facility] [address] [place] [phone] Referral ID Status Reason Start Date Expiration Date V isits Requested Visits Authorized [id number] Authorized 06/21/2021 06/21/2022 1 9 Status Reason Specialty Diagnoses / Procedures Referred By Contact Referred To Contact Pending Review Rehabilitation Diagnoses Pelvic pain Endometriosis Zaira Delgado MD [address] [address] [facility] [address] [place] [phone] Status Reason Specialty Diagnoses / Procedures Referred By Contact Referred To Contact Authorized Physical Therapy Diagnoses Pelvic pain Endometriosis Zaira Delgado MD [address] [place] [address] [facility] [address] [place] [phone] Reason Comments Physical Therapy Status Reason Specialty Diagnoses / Procedures Referred By Contact Referred To Contact Closed Physical Therapy Diagnoses Pelvic pain Endometriosis Zaira Delgado MD [address] [place] [phone] [facility] [address] [place] [address] Specialty Diagnoses / Procedures Referred By Contac t Referred To Contact MR IMAGING Diagnoses Abnormal results of liver function studies Procedures MRI PANC/NURYS WO/W IVCON MRI,ABDOMEN,W&[place] [address] [place] [address] Mr Imaging Referral ID Status Reason Start Date Expiration Date V isits Requested Visits Authorized [id number] Denied Auto-Generate d Referral 10/24/2021 11/23/2022 1 0 Reason Comments Patient Update CT denied Reason Comments Results Reason Comments Follow-up Pelvic pain, MRI don e 10/24/2021 Specialty Diagnoses / Procedures Referred By Contac t Referred To Contact Rehabilitation Diagnoses High-tone pelvic floor dysfunction Demetri Xavier MD [address] [address] [facility] [address] [place] [address] Referral ID Status Reason Start Date Expiration Date V isits Requested Visits Authorized [id number] Authorized 06/21/2022 06/21/2023 1 7 Care Teams (unrecognized sec tion and content) 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 Relationship Specialty Start Date End Date Zaira Aponte DO [address] [place] [id number] PCP - General Family Medicine 02/02/20 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 Relationship Specialty Start Date End Date Zaira Aponte DO [address] [place], [place] [phone] PCP - General Family Medicine 02/02/20 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 Relationship Specialty [place] [address] [place] [phone] PCP - General Family Practice 12/22/19 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 Relationship Specialty Start Date End Date Zaira Aponte [address] [place], [place] [phone] PCP - General Family Practice 12/22/19 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 Relationship Specialty Start Date End Date Zaira AponteDO [address] [place], [place] [phone] PCP - General Family Practice 12/22/19 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 Relationship Specialty Start Date End Date Zaira Aponte [address] [place] [address] PCP - General Family Practice 12/22/19 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 Relationship Specialty Start Date End Date Zaira AponteDO [address] [place] [address] PCP - General Family Practice 12/22/19 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 Relationship Specialty Start Date End Date Zaira Aponte DO [address] [place] [address] PCP - General Family Medicine 02/02/20 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 Relationship Specialty Start Date End Date Zaira Aponte DO [address] [place] [address] PCP - General Family Medicine 02/02/20 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 Relationship Specialty Start Date End Date Zaira Aponte DO [address] [place] [address] PCP - General Family Medicine 02/02/20 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 Relationship Specialty Start Date End Date Zaira Aponte DO [address] [place] [address] (work) PCP - General Family Medicine 02/02/20 Source Comments (unrecognize d section and content) In the event this informatio n is protected by the Federal Confidentiality of Alcohol and Drug Abuse Patient Records regulations: The Federal rules restrict any use of the information to criminally investigate or prosecute any alcohol or drug abuse patient.[facility] the event this information is protected by the Federal Confidentiality of Alcohol and Drug Abuse Patient Records regulations: The Federal rules restrict any use of the information to criminally investigate or prosecute any alcohol or drug abuse patient.[facility] the event this information is protected by the Federal Confidentiality of Alcohol and Drug Abuse Patient Records regulations: The Federal rules restrict any use of the information to criminally investigate or prosecute any alcohol or drug abuse patient.[facility] the event this information is protected by the Federal Confidentiality of Alcohol and Drug Abuse Patient Records regulations: The Federal rules restrict any use of the information to criminally investigate or prosecute any alcohol or drug abuse patient.[facility] the event this information is protected by the Federal Confidentiality of Alcohol and Drug Abuse Patient Records regulations: The Federal rules restrict any use of the information to criminally investigate or prosecute any alcohol or drug abuse patient.[facility] FOR RECORDS PERTAINING TO PATIENTS WHO ARE OR HAVE BEEN ENROLLED IN A CHEMICAL DEPENDENCY/SUBSTANCEABUSE PROGRAM, SOME INFORMATION MAY BE OMITTED. This clinical summary was aggregated from multiple sources. Caution should be exercised in using it in the provision of clinical care. This summary normalizes information from multiple sources, and as a consequence, information in this document may materially change the coding, format and clinical context of patient data. In addition, data may be omitted in some cases. CLINICAL DECISIONS SHOULD BE BASED ON THE PRIMARY CLINICAL RECORDS. [facility] [employer] [facility]. provides no warranty or guarantee of the accuracy or completeness of information in this document.
[2023-11-23 15:44] LABS: Absolute Lymphocyte Count 1.71 X10^3/uL (0.83-4.51); Absolute Neutrophil Count 4.2 X10^3/uL (2.0-7.7); Basophil# 0.02 X10^3/uL; Basophil% 0.3 % (0-1); Eosinophil# 0.24 X10^3/uL; Eosinophils% 3.6 % (0-5); Hemoglobin 14.1 g/dL (12.0-15.0); Lymphocyte # 1.71 X10^3/ul (0.83-4.51); Lymphocyte % 25.5 % (19-41); Mean Corp Hgb Conc 32.8 g/dL (32-36); Mean Corpuscular Hgb 28.8 pg (27.0-32.0); Mean Corpuscular Volume 87.9 fL (81-99); Mean Platelet Vol. 11.3 fl (6.2-12.0); Monocyte# 0.54 X10^3/uL; NRBC Flagged by Analyzer 0 % (0-5); Neutrophil # 4.18 X10^3/uL (2.7-7.7); Neutrophil % 62.3 % (47-70); Platelet Count 167 K/mm3 (150-450); RBC Distribution Width CV 12.8 % (11.6-14.6); RBC Distribution Width SD 41.4 fl (35.1-43.9); Red Blood Count 4.89 M/mm3 (4.2-5.4); White Blood Count 6.7 K/mm3 (4.4-11.0)
[2023-11-23 17:14] LABS: ALB/GLOB Ratio 1.1 RATIO (0.9-2.4); AST(SGOT) 22 U/L (15-37); Alanine Aminotransfer ALT/SGPT 35 U/L (13-56); Albumin, Serum 4.1 g/dL (3.2-5.0); Alkaline Phosphatase 76 U/L (45-117); Anion Gap 5 (5-15); BUN 11 mg/dL (7-18); BUN/Creat Ratio 14.1 RATIO (10-20); Calcium,Total 9.8 mg/dL (8.5-10.1); Chloride 108 mmol/L (98-107); Cholesterol 213 mg/dL (200); Creatinine, Serum 0.78 mg/dL (0.55-1.02); EST Glomerular Filtration Rate 84 mL/min (>60); Est Glom Filt Rate - Afr Amer 101 mL/min (>60); Estradiol 22.6 pg/mL; Globulin 3.7 g/dL (2.2-4.2); Glucose 92 mg/dL (74-106); High Density Lipoprotein 65 mg/dL; Potassium 3.7 mmol/L (3.5-5.1); Protein, Total 7.8 g/dL (6.4-8.2); Sodium Level 141 mmol/L (136-145); T4 Free Direct 1.11 ng/dL (0.76-1.46); Thyroid Stim Hormone (TSH) 0.44 uIU/mL (0.358-3.74); Triglycerides 126 mg/dL; Very Low Density Lipoprotein 25 mg/dL (5-40)
== END | disposition home or self-care (01) ==
PROVIDERS: PCP Family Medicine; Referring Provider Family Medicine; Visit Provider Family Medicine
DX: Z00.00 Encounter for general adult medical examination without abnormal findings (principal); E06.3 Autoimmune thyroiditis; N92.1 Excessive and frequent menstruation with irregular cycle
CPT/HCPCS: 36415; 80053; 80061; 82670; 84439; 84443; 85025

== ENCOUNTER → 2025-02-10 | Outpatient (CLI) | payer MEDICAID, SELFPAY ==
[2025-02-10 18:25] LABS: Absolute Lymphocyte Count 1.62 X10^3/uL (0.83-4.51); Absolute Neutrophil Count 3.5 X10^3/uL (2.0-7.7); Basophil# 0.03 X10^3/uL; Basophil% 0.5 % (0-1); Eosinophil# 0.64 X10^3/uL; Eosinophils% 10.2 % (0-5); Hemoglobin 13.7 g/dL (12.0-15.0); Lymphocyte # 1.62 X10^3/ul (0.83-4.51); Lymphocyte % 25.7 % (19-41); Mean Corp Hgb Conc 34.3 g/dL (32-36); Mean Corpuscular Volume 84.6 fL (81-99); Mean Platelet Vol. 11.3 fl (6.2-12.0); Monocyte# 0.46 X10^3/uL; Monocyte% 7.3 % (0-10); NRBC Flagged by Analyzer 0 % (0-5); Neutrophil # 3.54 X10^3/uL (2.7-7.7); Neutrophil % 56.1 % (47-70); POSITIVE COUNT YES; RBC Distribution Width SD 40.2 fl (35.1-43.9); Red Blood Count 4.73 M/mm3 (4.2-5.4); White Blood Count 6.3 K/mm3 (4.4-11.0)
[2025-02-10 18:59] LABS: Differential Indicated SCAN CRITERIA MET; Platelet Estimate SLT DEC (ADEQ)
[2025-02-10 19:19] LABS: ALB/GLOB Ratio 1.5 RATIO (0.9-2.4); AST(SGOT) 25 U/L (<=31); Alanine Aminotransfer ALT/SGPT 23 U/L (<=34); Albumin, Serum 4.7 g/dL (3.5-5.0); Alkaline Phosphatase 81 U/L (35-104); Anion Gap 13 (5-15); BUN 13 mg/dL (4-19); BUN/Creat Ratio 18.7 RATIO (10-20); Calcium,Total 9.4 mg/dL (7.6-11.0); Carbon Dioxide 23.6 mmol/L (21.0-32.0); Chloride 104 mmol/L (98-108); Cholesterol 209 mg/dL (<=200); Creatinine, Serum 0.71 mg/dL (0.70-1.20); EST Glomerular Filtration Rate 104 (>60); Globulin 3.1 g/dL (2.2-4.2); Glucose 85 mg/dL (70-99); High Density Lipoprotein 68 mg/dL; Low Density Lipoprotein Calc. 125 mg/dL; Potassium 3.6 mmol/L (3.3-5.1); Protein, Total 7.7 g/dL (5.9-8.4); Sodium Level 140 mmol/L (133-145); Total Bilirubin 0.62 mg/dL (0.00-1.30); Triglycerides 78 mg/dL; Very Low Density Lipoprotein 16 mg/dL (5-40); cholesterol:hdl ratio screen 3.06
[2025-02-10 19:20] LABS: Estradiol < 5.0 pg/mL
[2025-02-12 07:07] LABS: Cancer Antigen 125 2303 6.1 U/mL (0.0-38.1); Carcinoembryonic Antigen < 0.6 ng/mL (0.0-4.7)
== END | disposition home or self-care (01) ==
LOC: BFHLAB 14:57
PROVIDERS: PCP Family Medicine; Visit Provider Family Medicine
DX: N83.8 Other noninflammatory disorders of ovary, fallopian tube and broad ligament (principal); D69.6 Thrombocytopenia, unspecified; E06.3 Autoimmune thyroiditis; R23.2 Flushing
CPT/HCPCS: 36415; 80053; 80061; 82378; 82670; 84439; 84443; 85025; 86304

== ENCOUNTER → 2025-03-07 | Outpatient (CLI) | payer MEDICAID, SELFPAY ==
--- NOTE | 2025-03-07 07:45 | CT_ITS ---
PROCEDURE: SINUS/FACIAL BONE REASON FOR EXAM: FACIAL SWELLING TECHNIQUE: CT of the paranasal sinuses without contrast. Coronal and Sagittal reconstruction series were provided. One or more dose reduction techniques were used (e.g., Automated exposure control, adjustment of the mA and/or kV according to patient size, use of iterative reconstruction technique). COMPARISON: None. FINDINGS: Mild circumferential left maxillary mucosal thickening. Minimal posterior left ethmoid air cell mucosal thickening. Remaining paranasal sinuses are clear. No fluid levels to suggest acute sinusitis. Opacification of the left ostiomeatal unit. Right ostiomeatal unit and bilateral sphenoethmoidal recesses are grossly patent. Minimal leftward nasal septal deviation. Turbinates are intact. Globes are intact. TMJs are within normal limits. Bilateral mastoid air cells and middle ear cavities are clear. Superficial soft tissues are within normal limits. CT/Sinus/Facial Bone IMPRESSION: 1. Negative for acute sinusitis. 2. Minimal left maxillary and left ethmoid sinus mucosal thickening. 3. Opacification of the left ostiomeatal unit. 4. Minimal leftward nasal septal deviation. Reading Location: [facility]
== END | disposition home or self-care (01) ==
LOC: CT 07:35
PROVIDERS: PCP Family Medicine
DX: R22.0 Localized swelling, mass and lump, head (principal)
CPT/HCPCS: 70486